=== PATIENT | male | born 1995 | race Caucasian/White ===

== ENCOUNTER 2020-10-06 08:13 | Outpatient (REF) | payer OTHER, SELFPAY ==
[2020-10-06 08:57] LABS: MANUAL DIFF FLAG NO
[2020-10-06 09:05] LABS: Basophils Percent Auto 0.4 % (0-2); Eosinophils Absolute Auto 0.1 X10*3/uL (0.0-0.4); Hematocrit 46.4 % (42-52); Hemoglobin 15.9 g/dl (14.0-18.0); Imm Gran Abs Auto 0.03 X10*3/uL (0.00-0.03); Imm Gran Pct Auto 0.4 % (0.0-0.4); Lymphocytes Absolute Auto 2.2 X10*3/uL (1.2-4.9); Lymphocytes Percent Auto 32.1 % (20-40); Mean Corpuscular HGB Conc 34.3 g/dl (31.0-36.0); Mean Corpuscular Volume 81.8 fL (80-98); Mean Platelet Volume 9.2 fL (9.4-12.4); Monocytes Absolute Auto 0.5 X10*3/uL (0.1-1.2); Monocytes Percent Auto 6.6 % (2-11); Neutrophils Absolute Auto 4.1 X10*3/uL (2.0-8.3); Neutrophils Percent Auto 58.5 % (45-73); Platelet Count 355 X10*3/uL (160-400); Red Blood Count 5.67 X10*6/uL (4.60-5.80); Red Cell Distribution Width 12.9 % (11.0-16.0)
[2020-10-06 09:32] LABS: Alanine Aminotransferase 20 U/L (0-40); Albumin Level 4.3 g/dL (3.5-5.0); Alkaline Phosphatase 50 U/L (39-117); Anion Gap 10 (12-20); Aspartate Amino Transferase 15 U/L (5-37); Bilirubin Total 1.1 mg/dL (0.0-1.0); Blood Urea Nitrogen 17 mg/dL (9-16); Carbon Dioxide 29 mmol/L (22-29); Chloride 103 mmol/L (96-108); Cholesterol 133 mg/dL; Estimated Glomerular Filt Rate > 60; Glucose Fasting 100 mg/dL (60-99); HDL Cholesterol 42 mg/dL; LDL Cholesterol Calculated 74 mg/dl; Potassium 4.3 mmol/l (3.3-5.1); Sodium 138 mmol/L (135-145); Total Protein 7.3 g/dL (6.5-8.0); Triglycerides 87 mg/dL
[2020-10-06 09:55] LABS: Thyroid Stimulating Hormone 0.68 uIU/mL (0.32-4.0)
== END 2020-10-06 08:14 | disposition home or self-care (01) ==
LOC: HO.LAB 08:13
PROVIDERS: PCP Internal Medicine; Visit Provider Internal Medicine
DX: E03.9 Hypothyroidism, unspecified (principal); Z00.00 Encounter for general adult medical examination without abnormal findings; E11.9 Type 2 diabetes mellitus without complications
CPT/HCPCS: 36415; 80053; 80061; 84443; 85025

== ENCOUNTER 2020-11-29 15:22 | Outpatient (REF) | payer OTHER, SELFPAY | END 2020-11-29 15:23 | disposition home or self-care (01) | LOC: HO.LAB 15:22 | PROVIDERS: Visit Provider Internal Medicine | DX: Z20.822 Contact with and (suspected) exposure to COVID-19 (principal) | CPT/HCPCS: 36415; C9803; U0003 ==

== ENCOUNTER 2021-01-09 12:12 | Outpatient (REF) | payer OTHER, SELFPAY | END 2021-01-09 12:13 | disposition home or self-care (01) | LOC: HO.LAB 12:12 | PROVIDERS: Visit Provider Internal Medicine | DX: Z20.822 Contact with and (suspected) exposure to COVID-19 (principal) | CPT/HCPCS: 36415; C9803; U0003; U0005 ==

== ENCOUNTER 2021-02-21 10:38 | Emergency (ER) | payer OTHER, SELFPAY ==
--- NOTE | ~2021-02-21 | CT_ITS ---
EXAMINATION: CT angio head neck CLINICAL INFORMATION: Status post chiropractic manipulation. Evaluate for dissection. COMPARISON: CT scan of the head 10/08/2010. TECHNIQUE: Automobile Racer images were obtained. A CT angiogram of the head and neck was performed in the arterial phase after the intravenous administration of 70 mL Omnipaque 350. Pre and delayed postcontrast images of the head were also obtained. MIP reconstructions were generated in multiple orientations at the acquisition workstation. Multiple three-dimensional surface rendered images and maximum intensity projection images were generated on a dedicated 3-D lab workstation. Arterial stenoses are measured in accordance with NASCET criteria or similar method if applicable. This CT examination was performed using dose optimization techniques as appropriate, including one or more of the following: Automated exposure control, iterative reconstruction, and adjustment of technique factors (mA and/or kVp) according to patient size (this includes techniques or standardized protocols for targeted exams where dose is matched to indication/reason for exam). Total exam dose-length product 2516 mGy-cm FINDINGS: Head: Postcontrast images reveal no abnormal mass or enhancement within the intracranial compartment. There is no acute hemorrhage or abnormal extra-axial collection. No intracranial mass effect or midline shift. Lateral and third ventricles are normal. No hydrocephalus. Hernandez-white matter differentiation is preserved and there is no evidence of acute territorial infarct. The calvarium and skull base are intact. Mastoid air cells and middle ear cavities are well aerated. No active paranasal sinus disease. CT angiogram neck: The aortic arch apex is normal. Origins of the major aortic branches are widely patent. Common carotid arteries and carotid bifurcations are normal. No stenosis of the extracranial internal carotid arteries. The cervical segments of the vertebral arteries as well as their origins are widely patent. No evidence of acute vascular dissection. CT angiogram head: Intracranial internal carotid arteries are normal. The intradural vertebral artery segments and basilar artery are normal. Anterior, middle, and posterior cerebral complexes are normal. No high-grade stenosis or proximal occlusion is visualized within the intracranial vessels. The timing of contrast injection provides adequate opacification of the dural venous sinuses which are patent. Other: Soft tissues of the neck including the thyroid gland are normal. Visualized lung apices are clear. There is no acute osseous finding. CT/CT angio head neck IMPRESSION: Normal CT angiogram of the head and neck.
[2021-02-21 11:03] VITALS: BP 126/79; PULSE 76; RESP 14; TEMP 36.2; O2SAT 97; BMI 36.4
--- NOTE | 2021-02-21 11:41 | ED_ITS ---
HPI - Neck Pain/Injury General Chief Complaint: Neck Pain/Injury Stated Complaint: neck pain Time Seen by Provider: 02/21/21 11:12 Source: patient Mode of arrival: ambulatory Limitations: no limitations History of Present Illness HPI Narrative: 25 y/o male presenting with acute on chronic neck pain L>R for the last 1 week. He initially had an injury to his neck in November after a fall and has been having issues since. He saw a chiropractor recently, and saw him 3 times last week. Since then he has been having more pain with movement. It hurts to try to move his head laterally down toward his shoulder. He has mild discomfort with rotation side to side. It hurts in the middle of the night and sometimes wakes him up. He denies hearing or feeling any popping or snapping sensations during his chiropractor visits. He denies headache. MD complaint: neck pain Onset (ago): month(s) Place: home Radiation: right lateral and left lateral Severity: moderate Severity scale (1-10): 6 Quality: aching and spasming Duration: constant and progressively worsening Relieving factors: immobilization and remaining still Exacerbating factors: movement of neck Context: recent chiropractic manipulation Associated symptoms: none Treatments prior to arrival: none Related Data Previous Rx's Medication Instructions Recorded cyclobenzaprine 10 mg PO TID PRN #10 tab 02/21/21 ibuprofen 600 mg PO Q8H PRN #20 tab 02/21/21 lidocaine [Lidoderm] 1 patch TOPICAL DAILY #15 ea 02/21/21 Allergies Allergy/AdvReac Type Severity Reaction Status Date / Time No Known Allergies Allergy Verified 10/19/20 11:34 Review of Systems Review of Systems: Constitutional: No Fever, No Chills Cardiovascular: No Chest Pain, No SOB Respiratory: No Cough, No Sputum Gastrointestinal: No Nausea, No Vomiting, No Diarrhea, No abdominal Pain Musculoskeletal: + joint pain, + Myalgias Skin: No Skin Lesions, No rash Neuro: No Weakness, No Numbness, No Dizziness, No Headache Heme/Lymph: No Bruising, No Lymphadenopathy PMFSH Past Medical History Attestation statement: The following information was validated with the patient. Medical History (Updated 02/21/21 @ 15:45 by IMRNA Ronquillo) Asthma Surgical History History of adenoidectomy Family History Family History Father No problems noted. Mother No problems noted. Social History Social History Alcohol intake: current Alcohol intake frequency: a few times a month Alcohol type: hard liquor Smoking Status: Never smoker Tobacco Type: Cigarette Smoked in Last 30 Days: No Use of substances other than those prescribed or required for medical reasons: No Advance Directives: Yes Advance Directives Information Provided: No Advance Directives on File: No Physical Exam Vital Signs: Vital Signs: Last Vital Signs Temp 97.4 F 02/21/21 14:01 Pulse 66 02/21/21 14:01 Resp 14 02/21/21 14:01 BP 130/77 02/21/21 14:01 Pulse Ox 98 02/21/21 14:01 Body Mass Index 36.4 Appearance: Alert. Oriented X3. No acute distress. Eyes: Pupils equal, round and reactive to light. ENT: Pharynx normal. Neck: Normal inspection. Neck supple. No cervical spinal tenderness. Right SCM with tenderness and spasm. CVS: Normal heart rate and rhythm. Pulses normal. Respiratory: No respiratory distress. Breath sounds normal. Abdomen: Soft and nontender. +BS x4 Skin: Skin warm and dry. Normal skin color. Normal skin turgor. No rashes. Extremities: No lower extremity edema. Neuro: Oriented X 3. No motor deficit. No sensory deficit. Course Course Course Narrative: 25 y/o with acute on chronic neck pain, most recently after chiropractor manipulation. Concern for possible carotid dissection given history, although his examination is consistent muscular strain. Will get CTA neck for further evaluation. Reevaluation(s) Reevaluation #1: CT neck is negative for dissection. Will treat for muscle strain in the neck. Patient agreeable with plan. Stable for d/c. MDM - Neck Pain/Injury Lab Data Result diagrams: 02/21/21 12:03 02/21/21 12:03 Labs: Lab Results 02/21/21 02/21/21 Range/Units 12:03 12:03 WBC 6.2 (4.8-10.8) X10*3/uL RBC 5.71 (4.60-5.80) X10*6/uL Hgb 15.8 (14.0-18.0) g/dl Hct 48.0 (42-52) % MCV 84.1 (80-98) fL MCH 27.7 (27.0-33.0) pg MCHC 32.9 (31.0-36.0) g/dl RDW 12.9 (11.0-16.0) % Plt Count 336 (160-400) X10*3/uL MPV 8.9 L (9.4-12.4) fL Immature Gran % (Auto) 0.2 (0.0-0.4) % Neut % (Auto) 65.6 (45-73) % Lymph % (Auto) 26.3 (20-40) % Lamoure % (Auto) 6.3 (2-11) % Eos % (Auto) 1.1 (0-4) % Baso % (Auto) 0.5 (0-2) % Lymph # (Auto) 1.6 (1.2-4.9) X10*3/uL [place]oure # (Auto) 0.4 (0.1-1.2) X10*3/uL Eos # (Auto) 0.1 (0.0-0.4) X10*3/uL Baso # (Auto) 0.0 (0.0-0.2) X10*3/uL Abs Immat Gran (auto) 0.01 (0.00-0.03) X10*3/uL Absolute Neuts (auto) 4.0 (2.0-8.3) X10*3/uL Absolute Nucleated RBC 0.000 (0.0-0.012) X10*3/uL Nucleated RBC % (auto) 0.0 (0.0-0.2) /100WBC Sodium 141 (135-145) mmol/L Potassium 4.4 (3.3-5.1) mmol/L Chloride 105 (96-108) mmol/L Carbon Dioxide 28 (22-29) mmol/L Anion Gap 12 (12-20) Creatinine 0.84 (0.5-1.4) mg/dL Estim Creat Clear Calc 148.1 Estimated GFR > 60 Random Glucose 101 (60-115) mg/dL Discharge Plan Discharge Clinical Impression: Strain of neck muscle Qualifiers: Encounter type: initial encounter Qualified Code(s): S16.1XXA - Strain of muscle, fascia and tendon at neck level, initial encounter Patient Disposition: Home, Self-Care Instructions: Cervical Strain (ED), Neck Pain (ED) Additional Instructions: Your CT scan today was normal. The pain in your neck is likely muscular in nature. Take the prescribed medications as needed for pain. Follow up with your doctor this week. If you have worsening pain, or develop any numbness, tingling or weakness come back to the ER for further evaluation. Prescriptions: New cyclobenzaprine 10 mg tablet 10 mg PO TID PRN (Reason: muscle spasm) Qty: 10 RF: 0 ibuprofen 600 mg tablet 600 mg PO Q8H PRN (Reason: pain) Qty: 20 RF: 0 lidocaine [Lidoderm] 5 % adhesive patch,medicated 1 patch topical DAILY Qty: 15 RF: 0
[2021-02-21 12:07] LABS: MANUAL DIFF FLAG NO
[2021-02-21 12:08] LABS: Basophils Percent Auto 0.5 % (0-2); Eosinophils Absolute Auto 0.1 X10*3/uL (0.0-0.4); Eosinophils Percent Auto 1.1 % (0-4); Hemoglobin 15.8 g/dl (14.0-18.0); Imm Gran Abs Auto 0.01 X10*3/uL (0.00-0.03); Imm Gran Pct Auto 0.2 % (0.0-0.4); Lymphocytes Absolute Auto 1.6 X10*3/uL (1.2-4.9); Lymphocytes Percent Auto 26.3 % (20-40); Mean Corpuscular HGB Conc 32.9 g/dl (31.0-36.0); Mean Corpuscular Hemoglobin 27.7 pg (27.0-33.0); Mean Corpuscular Volume 84.1 fL (80-98); Mean Platelet Volume 8.9 fL (9.4-12.4); Monocytes Absolute Auto 0.4 X10*3/uL (0.1-1.2); Monocytes Percent Auto 6.3 % (2-11); Neutrophils Percent Auto 65.6 % (45-73); Platelet Count 336 X10*3/uL (160-400); Red Blood Count 5.71 X10*6/uL (4.60-5.80); Red Cell Distribution Width 12.9 % (11.0-16.0); White Blood Count 6.2 X10*3/uL (4.8-10.8)
[2021-02-21 12:36] LABS: Anion Gap 12 (12-20); Carbon Dioxide 28 mmol/L (22-29); Chloride 105 mmol/L (96-108); Creatinine Clr Calc Pharmacy 148.1; Estimated Glomerular Filt Rate > 60; Glucose Random 101 mg/dL (60-115); Potassium 4.4 mmol/L (3.3-5.1); Sodium 141 mmol/L (135-145)
[2021-02-21] MEDS: iohexoL 350 MG/ML 100 ML INFUS..BTL IV (13:00)
[2021-02-21 14:01] VITALS: BP 130/77; PULSE 66; RESP 14; TEMP 36.3; O2SAT 98
--- NOTE | 2021-02-21 15:02 | PC.NURSE ---
call placed to public safety director to request update on cta results
--- NOTE | 2021-02-21 15:29 | PC.NURSE ---
additional call to cat scan dept by surekha yao to request results
[2021-02-21 16:48] LABS: Blood Urea Nitrogen 19 mg/dL (9-16); Calcium 9.4 mg/dL (8.4-10.2)
== END 2021-02-21 16:01 | disposition home or self-care (01) ==
PROVIDERS: Physician Assistant; Emergency Provider Emergency Medicine Emergency Medical Services; PCP Internal Medicine
DX: S16.1XXA Strain of muscle, fascia and tendon at neck level, initial encounter (principal); M54.2 Cervicalgia; G44.309 Post-traumatic headache, unspecified, not intractable; W01.0XXA Fall on same level from slipping, tripping and stumbling without subsequent striking against object, initial encounter; Y93.9 Activity, unspecified; Y92.9 Unspecified place or not applicable; Y99.9 Unspecified external cause status; F17.210 Nicotine dependence, cigarettes, uncomplicated; Z79.899 Other long term (current) drug therapy; Z71.6 Tobacco abuse counseling
CPT/HCPCS: 36415; 70496; 70498; 80048; 85025; 99284; Q9967

== ENCOUNTER → 2021-03-29 08:19 | Outpatient (BNVA) | payer OTHER, SELFPAY | PROVIDERS: PCP Internal Medicine; Visit Provider Internal Medicine | DX: S40.012A Contusion of left shoulder, initial encounter (principal); W18.30XA Fall on same level, unspecified, initial encounter | CPT/HCPCS: 72050; 73030; 99203 ==

== ENCOUNTER → 2021-04-03 08:03 | Outpatient (BNVA) | payer OTHER, SELFPAY | PROVIDERS: PCP Internal Medicine; Visit Provider Internal Medicine | DX: S40.012A Contusion of left shoulder, initial encounter (principal); W18.30XA Fall on same level, unspecified, initial encounter | CPT/HCPCS: 99213 ==

== ENCOUNTER → 2024-05-07 11:20 | Outpatient (BNVA) | payer SELFPAY | PROVIDERS: PCP Internal Medicine; Visit Provider Registered Nurse | DX: Z02.79 Encounter for issue of other medical certificate (principal) ==

== ENCOUNTER 2025-08-09 14:51 | Outpatient (AMB) | payer OTHER, SELFPAY ==
--- NOTE | 2025-08-09 15:13 | A.OFFPC_ITS ---
Vital Signs 3 08/09/25 15:14 Height 5 ft 6 in Weight 248 lb 6 oz BMI 40.1 BP 120/80 Blood Pressure Location Lt brachial Position Sitting Respiration 18 Pulse 85 Pulse Source Pulse Oximeter Temp Source Temporal Artery Scan Pulse Oximetry (%) 97 Oxygen Delivery Method Room Air Intake Visit Reasons: establish care Senior Accounts Payable Specialist Required: No Accompanied by: Self / Same As Patient Allergies No Known Allergies Allergy (Verified 08/09/25 15:27) Medication List - Last Reconciled 08/09/25 by Ja Dangelo PA-C No Known Home Meds Tobacco use date assessed: 08/09/25 Dental Screening Dental Screen Date: 08/09/25 Did you have a dental visit in the last 12 months?: No Did you have a dental problem in the last 6 months where you did not have access to dental care?: No Was dental information given to patient?: No HPI establish care 2 HPI0 Details The patient is a 29-year-old male presenting with multiple concerns including erectile dysfunction, shoulder pain, frequent urination with bladder pain, and lumps on the body. He has not been seen by PCP in over 4 years The erectile dysfunction has been ongoing for approximately eight months, with the patient reporting an inability to achieve an erection despite having the urge. He previously sought medical attention two years ago but did not receive follow-up results. The shoulder pain began a few months ago following an unreported work injury. The patient experiences pain and pressure when lifting or sleeping on the affected side, with a noted decrease in strength and range of motion. The patient reports frequent urination with associated bladder pain, occurring approximately every 30 minutes throughout the day. He denies increased thirst but notes a history of proteinuria identified during a previous medical examination. The patient has noticed lumps on his body, which have become more prominent over the past week. These lumps are not painful but cause discomfort, and the patient is concerned about their nature. The patient has a family history of heart defects, with his father having a condition described as a hole in the heart. He is aware that this condition may be hereditary and is considering getting checked, as his siblings have already been tested. The patient has a BMI that categorizes him as obese, and he acknowledges the need to address this issue. [facility] Medical History Asthma (03/27/21) Surgical History History of adenoidectomy Family History (Updated 08/09/25 @ 15:51 by Ja Dangelo PA-C) Father Congenital heart defect Mother No problems noted. Social History (Updated 08/09/25 @ 15:30 by Ja Dangelo PA-C) Household Members: None Housing: Apartment Alcohol intake: current Alcohol intake frequency: a few times a month Alcohol type: hard liquor Tobacco use type: Smokeless Tobacco e-Cigarette/Vaping Use: Currently Using Current occupational status: employed Current occupation: delivery driver Cognitive needs: No Hearing needs: No Vision needs: No Questionnaire PHQ-9 Over the last 2 weeks, how often have you been bothered by any of the following problems? 1. Little interest or pleasure in doing things: several days 2. Feeling down, depressed, or hopeless: several days 3. Trouble falling or staying asleep, or sleeping too much: several days 4. Feeling tired or having little energy: several days 5. Poor appetite or overeating: several days 6. Feeling bad about yourself - or that you are a failure or have let yourself or your family down: not at all 7. Trouble concentrating on things, such as reading the newspaper or watching television: nearly every day 8. Moving or speaking so slowly that other people could have noticed. Or the opposite - being so fidgety or restless that you have been moving around a lot more than usual: not at all 9. Thoughts that you would be better off or of hurting yourself in some way: not at all Total score: 8 Depression Screening Interpretation: Positive Depression Screening Follow-up: Existing condition Depression Screening Done: Yes 49792 - PHQ-9 Billing: Yes Source: Developed by Drs. Lukasz Canales, Lauren Varghese, Patric Pride and colleagues, with an educational mally from [employer]. Thrive Questionnaire Date Thrive assessed: 08/09/25 I am a: Patient What is your living situation today?: I have a steady place to live Within the past 12 months, did the food you bought not last and you didn't have the money to get more?: Never true Within the past 12 months, did you worry whether your food would run out before you got money to buy more?: Never true Do you have trouble paying for medicines?: No Do you have trouble getting transportation to medical appointments?: No Do you have trouble paying your heating and electricity bill?: No Do you have trouble taking care of your child, family member or friend?: No Do you have trouble with day-to-day activities such as bathing, preparing meals, shopping, managing finances, etc.?: No Are you currently unemployed and looking for a job?: No Are you interested in more education?: No Please select the resources that you would like help with: None Currently or been in a relationship where the following occur: No concerns reported THRIVE Score: 0 AUDIT C Alcohol Use Questionnaire (AUDIT-C) 1. How often do you have a drink containing alcohol?: Monthly or less 2. How many drinks containing alcohol do you have on a typical day when you are drinking?: 3 or 4 3. How often do you have six or more drinks on one occasion?: Never Total Score: 2 LILIBETH-7 AMB Questionnaire LILIBETH-7 Date LILIBETH - 7 assessed: 08/24/25 Feeling nervous, anxious, or on edge: 0 = Not at all Not being able to stop or control worryin = Not at all Worrying too much about different things: 1 = Several days Trouble relaxin = More than half the days Being so restless that it is hard to sit still: 1 = Several days Becoming easily annoyed or irritable: 2 = More than half the days Feeling afraid as if something awful might happen: 0 = Not at all Total LILIBETH-7 score (0-4 normal; 5-9 mild; 10-14 moderate; 15-21 severe): 6 Source: Developed by Drs. Lukasz Canales, Lauren Varghese, Patric Pride and colleagues, with an educational mally from [employer]. LILIBETH-7 Assessment Billing LILIBETH-7 Assessment Tool: LILIBETH-7 Assessment 52228 Review of Systems Const Denies headache(s) Eyes Denies loss of vision ENT Denies vertigo, Denies dizziness, Denies headache(s) and Denies sore throat Card Denies chest pain, Denies leg edema and Denies lightheadedness Resp Denies cough, Denies hemoptysis and Denies wheezing GI Denies abdominal pain, Denies melena, Denies constipation, Denies diarrhea and Denies vomiting Denies dysuria, Denies urinary frequency and Denies urinary urgency Musc Denies arthralgias, Denies joint swelling, Denies numbness and Denies tingling Neuro Denies Abnormal speech present, Denies behavioral changes, Denies vertigo, Denies dizziness, Denies headache(s), Denies loss of vision, Denies memory loss, Denies numbness and Denies tingling Psych Denies anxiety, Denies behavioral changes, Denies depression, Denies memory loss and Denies panic attacks Hasmukh/Lymph Denies easy bleeding and Denies easy bruising Aller/Immun Denies wheezing Physical exam (Primary Care) Vital Signs: Last Vital Signs Pulse 85 08/09/25 15:14 Resp 18 08/09/25 15:14 BP 120/80 08/09/25 15:14 Pulse Ox 97 08/09/25 15:14 Oxygen Delivery Method Room Air 08/09/25 15:14 BMI result Body Mass Index 40.1 Tobacco/Smoking Status: Tobacco use Status Tobacco use date assessed 08/09/25 08/09/25 15:23 Patient Tobacco Use Status 08/09/25 15:30 Tobacco use type Smokeless Tobacco 08/09/25 15:30 e-Cigarette/Vaping Use Currently Using 08/09/25 15:30 PHQ-9: PHQ-9 Score PHQ-9: Total score 8 08/09/25 15:35 Depression Screening Interpretation: Positive Depression Screening Follow-up: Existing condition Thrive Assessment: Date of Thrive Assessment Date Thrive assessed 08/09/25 08/09/25 15:23 Currently or been in a relationship where the following occur: No concerns reported Const General: healthy appearing, no acute distress, alert and awake Nutritional Appearance: well nourished Orientation/consciousness: oriented to person, oriented to place and oriented to time HENMT Ears: TM's normal bilaterally General nose exam: Normal nasal mucous membranes and turbinates present Eyes Conjunctivae: conjunctivae normal Sclerae: sclerae normal Pupils: Equal, round and reactive pupils present Neck Neck: Yes no lymphadenopathy and Yes no JVD Thyroid: Thyroid normal Carotids: no bruits Neck images: 2 1. PALPABLE SOFT LUMP NOTED IN THE REGION OUTLINED Resp Effort & Inspection: normal respiratory effort and not tachypneic Auscultation: no crackles, no rales, no rhonchi and no wheezes Cardio Rate: regular rate Rhythm: regular rhythm Heart sounds: no murmurs and normal S1 and S2 GI Palpation (GI): Soft to palpation, nontender, no hepatomegaly and no splenomegaly Auscultation: normal bowel sounds Skin General skin exam: no rashes or lesions noted and dry skin Neuro General: oriented to person, oriented to place and oriented to time Cranial nerves: Yes Equal, round and reactive pupils present Speech: No Abnormal speech present Gait exam (Neuro): Normal gait present Motor exam (neuro): no tremor noted Extrem Other: RIGHT SHOULDER: SOME LIMITED RANGE OF MOTION OF THE RIGHT SHOULDER, NEGATIVE EMPTY CAN, NEGATIVE HERNÁNDEZ TEST. Right upper extremity: full ROM Left upper extremity: full ROM Right lower extremity: full ROM; no edema Left lower extremity: full ROM; no edema Psych Mental Status: mental status grossly normal Speech and movement: Normal speech and movement present Affect: normal affect Attitude: cooperative Thought process: Normal thought process present Coding Level of Care Code New Pt Level 4 (45570) Diagnoses Tendinopathy of right shoulder M67.911 Lump on neck R22.1 Polyuria R35.89 Erectile disorder N52.9 Screening for diabetes mellitus (DM) Z13.1 Family history of congenital heart defect Z82.79 Additional Codes PHQ-9 - 38876 - PHQ-9 Billing: Yes ([id number]) LILIBETH-7 Assessment Billing - LILIBETH-7 Assessment Tool: LILIBETH-7 Assessment 00967 ([id number]) Assessment & Plan Assessment & Plan (1) Tendinopathy of right shoulder: Code(s): M67.911 - Unspecified disorder of synovium and tendon, right shoulder Category: Medical Plan: The shoulder pain will be initially managed with physical therapy and an x-ray to assess for any structural issues, with an MRI considered if symptoms persist. (2) Lump on neck: Code(s): R22.1 - Localized swelling, mass and lump, neck Category: Medical Plan: An ultrasound of the lumps is planned to determine if they are lipomas or lymphadenopathy. (3) Polyuria: Code(s): R35.89 - Other polyuria Category: Medical Plan: An ultrasound of the bladder is planned to investigate the cause of frequent urination and bladder pain, with consideration of potential cystitis or other bladder issues (4) Erectile disorder: Code(s): N52.9 - Male erectile dysfunction, unspecified Category: Medical Plan: Patient fairly young for erectile dysfunction. Does have a consistent partner required some time. Will trial sildenafil before sexual activity. Will refer to Urology for evaluation. (5) Screening for diabetes mellitus (DM): Code(s): Z13.1 - Encounter for screening for diabetes mellitus Category: Medical Plan: As per HPI (6) Family history of congenital heart defect: Code(s): Z82.79 - Family history of other congenital malformations, deformations and chromosomal abnormalities Category: Medical Plan: Patient has a family (father) history of a genetic/ congenital heart defect. Advise about evaluation. No overt signs of Congestive heart failure or murmurs on physical exam Orders: Orders 2 US bladder 08/09/25 R35.89 - Other polyuria US soft tiss head and/or neck 08/09/25 R22.1 - Localized swelling, mass and lump, neck Comprehensive [place]. Panel Fast 08/09/25 Z13.1 - Encounter for screening for diabetes mellitus CA echo transthoracic complete Today Z82.79 - Family history of other congenital malformations, deformations and chromosomal abnormalities UA CC w/rflx Micro + Cult 08/09/25 R30.0 - Dysuria, R35.89 - Other polyuria XR shoulder RT min 2V 08/09/25 M67.911 - Unspecified disorder of synovium and tendon, right shoulder Complete Blood Count no Diff 08/09/25 Z13.1 - Encounter for screening for diabetes mellitus Referrals 2 Urology Referral N52.9 - Male erectile dysfunction, unspecified Medications: New 2 sildenafil (Viagra) 100 mg PO DAILY 7 tabs 0RF 7 days N52.9 - Male erectile dysfunction, unspecified
[2025-08-09 15:14] VITALS: BP 120/80; PULSE 85; RESP 18; O2SAT 97; BMI 40.1
--- OUTSIDE RECORDS SUMMARY | 2025-08-09 17:57 | XMS_ITS | Encounter Summary ---
Author Organization [facility] Address [address] [place] [id number] Phone Care Team Providers Care Safety Engineer Pressure Vessels Name Role Phone Arturo Cheung MD Primary Care Provider Unavailabl e Encounter Details Date Type Department Care Team (Late st Contact Info) Description 06/03/2011 Documentation [facility] [address] [place], [place] [id number] Family Medicine, Physician [address] [place] [address] Social History Tobacco Use Types Packs/Day Years Used Date Smoking Tobacco: Never Assessed Sex and Gender Information Value Date Recorded Sex Assigned at Not on file Legal Sex Male 4:41 PM EDT Gender Identity Not on file Sexual Orientation Not on file documented as of this encounter Plan of Treatment Not on file documented as of this encounter Visit Diagnoses Not on filedocumented in this encounter Care Teams Safety Engineer Pressure Vessels Relationship Specialty Start Date End Date Arturo Cheung MD PCP - General 06/27/17 documented as of this encounter
--- OUTSIDE RECORDS SUMMARY | 2025-08-09 17:57 | XMS_ITS | Encounter Summary ---
Author Organization [facility] Address [address] [place] [phone] Phone Care Team Providers Care Forensic Medical Examiner Name Role Phone Arturo Cheung MD Primary Care Provider Unavailabl e Encounter Details Date Type Department Care Team (Late st Contact Info) Description 05/08/2012 Documentation [facility] [address] [place], [place] [phone] Family Medicine, Physician [address] [place] [address] Social History Tobacco Use Types Packs/Day Years [...] on filedocumented in this encounter Care Teams Forensic Medical Examiner Relationship Specialty Start Date End Date Arturo Cheung MD PCP - General 06/27/17 documented as of this encounter
--- OUTSIDE RECORDS SUMMARY | 2025-08-09 17:57 | XMS_ITS | Encounter Summary ---
Author Organization [facility] Address [address] [place] [address] Phone Care Team Providers Care Grounds Cleaner Name Role Phone Arturo Cheung MD Primary Care Provider Unavailabl e Encounter Details Date Type Department Care Team (Late st Contact Info) Description 2011 Documentation [facility] [address] [place], [place] [phone] Family Medicine, Physician [address] [place] [address] Social History Tobacco Use Types Packs/Day Years [...] on filedocumented in this encounter Care Teams Grounds Cleaner Relationship Specialty Start Date End Date Arturo Cheung MD PCP - General 06/27/17 documented as of this encounter
--- OUTSIDE RECORDS SUMMARY | 2025-08-09 17:57 | XMS_ITS | Encounter Summary ---
Author Organization [facility] Address [address] [place] [address] Phone Care Team Providers Care Client Associate Name Role Phone Arturo Cheung MD Primary Care Provider Unavailabl e Encounter Details Date Type Department Care Team (Late st Contact Info) Description 06/03/2011 Documentation [facility] [address] [place], [place] [phone] Family Medicine, Physician [address] [place] [address] Social History Tobacco Use Types Packs/Day Years [...] on filedocumented in this encounter Care Teams Client Associate Relationship Specialty Start Date End Date Arturo Cheung MD PCP - General 06/27/17 documented as of this encounter
--- OUTSIDE RECORDS SUMMARY | 2025-08-09 17:57 | XMS_ITS | Encounter Summary ---
Author Organization [facility] Address [address] [place] [phone] Phone Care Team Providers Care Driver Manager Name Role Phone Arturo Cheung MD Primary Care Provider Unavailabl e Encounter Details Date Type Department Care Team (Late st Contact Info) Description 03/11/2012 Documentation [facility] [address] [place], [place] [phone] Family Medicine, Physician [address] [place] [address] Social History Tobacco Use Types Packs/Day Years [...] on filedocumented in this encounter Care Teams Driver Manager Relationship Specialty Start Date End Date Arturo Cheung MD PCP - General 06/27/17 documented as of this encounter
--- OUTSIDE RECORDS SUMMARY | 2025-08-09 17:57 | XMS_ITS | Encounter Summary ---
Author Organization [facility] Address [address] [place] [address] Phone Care Team Providers Care Licensed Veterinary Technician Name Role Phone Arturo Cheung MD Primary Care Provider Unavailabl e Encounter Details Date Type Department Care Team (Late st Contact Info) Description 06/03/2011 Documentation [facility] [address] [place], [place] [phone] Family Medicine, Physician [address] [place] [address] Social History Tobacco Use Types Packs/Day Years [...] on filedocumented in this encounter Care Teams Licensed Veterinary Technician Relationship Specialty Start Date End Date Arturo Cheung MD PCP - General 06/27/17 documented as of this encounter
--- OUTSIDE RECORDS SUMMARY | 2025-08-09 17:57 | XMS_ITS | Encounter Summary ---
Author Organization [facility] Address [address] [place] [address] Phone Care Team Providers Care Automobile Body Worker Name Role Phone Arturo Cheung MD Primary Care Provider Unavailabl e Encounter Details Date Type Department Care Team (Late st Contact Info) Description 07/03/2017 Conversion Encounter [facility] - [address] [address] Social History Tobacco Use Types Packs/Day Years Used Date Smoking Tobacco: Never Comments:Never smoker Sex and Gender Information Value Date Recorded Sex Assigned at Not on file Legal Sex Male 4:41 PM EDT Gender Identity Not on file Sexual Orientation Not on file documented as of this encounter Plan of Treatment Not on file documented as of this encounter Visit Diagnoses Not on filedocumented in this encounter Care Teams Automobile Body Worker Relationship Specialty Start Date End Date Arturo Cheung MD PCP - General 06/27/17 documented as of this encounter
--- OUTSIDE RECORDS SUMMARY | 2025-08-09 17:57 | XMS_ITS | Clinical Summary ---
Author Organization [facility] Address [address] [place] [address] Phone Care Team Providers Care Technical Product Manager Name Role Phone Arturo Cheung MD Primary Care Provider Unavailabl e Immunizations Immunization Administration Dates Next Due DTP 03/24/1995, 4,04/17/1994,12/18 DTaP 5 10/07/1997 HPV, Quadrivalent 03/10/2012 Hep A, ped/adol 05/31/2011 Hep B, ped/adol 04/17/1994,1993,1993 Hib (PRP-T) 06/04/2001 Influenza Split 09/30/2011 Influenza, intranasal, trivalent 07/26/2010 MMR 10/07/1997,03/24/1995 Meningococcal Conj (Menactra) MCV4P 09/18/2007 OPV 10/07/1997, 4,04/17/1994,12/18 Td (adult) (MBL), 2 Lf tetan us toxoid, PF, adsorbed 03/10/2012 Tdap 10/31/2005 Family History Relation Name Status Comments Brother Alive Brother: Hypert ension / Diabetes, Alive and well Father Alive Father: Hyperli pidemia / High Blood Pressure Mother Alive Mother: Rheumat oid arthritis Other Family history of Obesity, Family history of Migraines, Family history of Diabetes mellitus, Family history of Asthma Social History Tobacco Use Types Packs/Day Years Used Date Smoking Tobacco: Never Comments:Never smoker Sex and Gender Information Value Date Recorded Sex Assigned at Not on file Legal Sex Male 4:41 PM EDT Gender Identity Not on file Sexual Orientation Not on file Last Filed Vital Signs Vital Sign Reading Time Taken Comments Blood Pressure 113/77 02/04/2014 12:00 AM EDT Pulse 64 08/28/2010 12:00 AM EDT Temperature 35.8 C (96.5 F) 02/04/2014 12:00 AM EDT Respiratory Rate - - Oxygen Saturation 100% 11/30/2010 12:00 AM EST Inhaled Oxygen Concentration - - Weight 102 kg (225 lb) 02/04/2014 12:00 AM EDT Height 169.9 cm (5' 6.9 ) 02/04/2014 12:00 AM ED T Body Mass Index 35.35 02/04/2014 12:00 AM EDT Plan of Treatment Health Maintenance Due Date Last Done Comments Hepatitis B Vaccines (3 of 3 - 3-dose series) 06/12/1994 04/17/1994, 1993, 1993 Varicella Vaccines (1 of 2 - 13+ 2-dose series) 08/23/2010 Hepatitis A Vaccines (2 of 2 - 2-dose series) 12/01/2011 05/31/2011 HPV Vaccines (2 - Male 3-dose series) 04/07/2012 03/10/2012 DTaP,Tdap,and Td Vaccines (8 - Td or Tdap) 03/10/2022 03/10/2012, 10/31/2005, 10/07/1997, Additional history exists Influenza Vaccines (#1) 2025 09/30/2011, 07/26 COVID-19 Vaccine ( season) 2025 IPV Vaccines Completed 10/07/1997, 07/1994, 04/17/1994, Additional history exists MMR Vaccines Completed 10/07/1997, 03/24/1995 HIB Vaccines Aged Out 06/04/2001 No longer eligi ble based on patient's age to complete this topic Meningococcal Vaccine Aged Out 09/18/2007 No iglesia constance eligible based on patient's age to complete this topic Men B Vaccine Aged Out No longer elig ible based on patient's age to complete this topic Pneumococcal Vaccine Aged Out No long er eligible based on patient's age to complete this topic Care Teams Technical Product Manager Relationship Specialty Start Date End Date Arturo Cheung MD PCP - General 06/27/17
== END 2025-08-09 15:59 | disposition home or self-care (01) ==
PROVIDERS: PCP Physician Assistant; Visit Provider Physician Assistant
DX: M67.911 Unspecified disorder of synovium and tendon, right shoulder (principal); R22.1 Localized swelling, mass and lump, neck; R35.89 Other polyuria; N52.9 Male erectile dysfunction, unspecified; Z13.1 Encounter for screening for diabetes mellitus; Z82.79 Family history of other congenital malformations, deformations and chromosomal abnormalities

== ENCOUNTER → 2025-08-09 14:51 | Outpatient (BNVA) | payer OTHER, SELFPAY | PROVIDERS: Visit Provider Physician Assistant | DX: R35.0 Frequency of micturition (principal); N52.9 Male erectile dysfunction, unspecified; M67.911 Unspecified disorder of synovium and tendon, right shoulder; R22.1 Localized swelling, mass and lump, neck; R35.89 Other polyuria; E66.9 Obesity, unspecified; R30.0 Dysuria; Z68.41 Body mass index [BMI] 40.0-44.9, adult; Z82.79 Family history of other congenital malformations, deformations and chromosomal abnormalities | CPT/HCPCS: 96127 ==

== ENCOUNTER 2025-08-15 12:00 | Outpatient (REF) | payer OTHER, SELFPAY ==
--- NOTE | ~2025-08-15 | XR_ITS ---
EXAMINATION: XR SHOULDER, RIGHT CLINICAL INFORMATION: M67.911 - Unspecified disorder of synovium and tendon, right shoulder COMPARISON: None available. TECHNIQUE: AP external rotation, Grashey, scapular Y, and axillary views of the right shoulder. FINDINGS: Normal bone mineralization. No fracture, dislocation, or suspicious bone lesion. Normal alignment. The glenohumeral joint is normal. The AC joint demonstrates minimal spurring. There is a type II acromion. No undersurface spurring. The subacromial space is preserved. Remainder of the soft tissue and bony structures appear normal. XR/XR shoulder RT min 2V IMPRESSION: 1. No acute findings of the right shoulder. 2. Minimal spurring of the AC joint. Electronically signed by: Jose Ramsay MD 08/15/2025 01:20 PM EDT
[2025-08-15 13:35] LABS: Hematocrit 45.0 % (42.0-52.0); Hemoglobin 15.3 g/dl (14.0-18.0); Mean Corpuscular HGB Conc 34.0 g/dl (31.0-36.0); Mean Corpuscular Hemoglobin 27.4 pg (27.0-33.0); Mean Corpuscular Volume 80.6 fL (80.0-98.0); NRBC Abs Auto 0.000 X10*3/uL (0.0-0.012); NRBC Pct Auto 0.0 /100WBC (0.0-0.2); Platelet Count 362 X10*3/uL (160-400); Red Blood Count 5.58 X10*6/uL (4.60-5.80); White Blood Count 7.6 X10*3/uL (4.8-10.8)
[2025-08-15 14:01] LABS: Appearance Urine Clear; Glucose Urine UA Negative (Negative); PH 5.5 (5.0-9.0); Specific Gravity - Urine 1.020 (1.005-1.025)
[2025-08-15 14:29] LABS: Alanine Aminotransferase 34 U/L (0-40); Albumin Level 4.5 g/dL (3.5-5.0); Alkaline Phosphatase 67 U/L (39-117); Anion Gap 12 (12-20); Aspartate Amino Transferase 25 U/L (5-37); Blood Urea Nitrogen 14 mg/dL (9-16); Calcium 9.2 mg/dL (8.4-10.2); Carbon Dioxide 26 mmol/L (22-29); Chloride 107 mmol/L (96-108); Estimated Glomerular Filt Rate > 60; Potassium 3.8 mmol/L (3.3-5.1); Sodium 141 mmol/L (135-145); Total Protein 7.6 g/dL (6.5-8.0)
== END 2025-08-15 12:01 | disposition home or self-care (01) ==
LOC: HO.XRAY 12:00
PROVIDERS: PCP Physician Assistant; Visit Provider Physician Assistant
DX: Z13.1 Encounter for screening for diabetes mellitus (principal); M67.911 Unspecified disorder of synovium and tendon, right shoulder; R30.0 Dysuria; R35.89 Other polyuria
CPT/HCPCS: 36415; 73030; 80053; 81003; 85027

== ENCOUNTER → 2025-08-15 12:33 | Outpatient (BNV) | payer OTHER, SELFPAY | PROVIDERS: PCP Physician Assistant; Visit Provider Radiology Diagnostic Radiology | DX: M19.011 Primary osteoarthritis, right shoulder (principal) | CPT/HCPCS: 73030 ==

== ENCOUNTER 2025-08-18 15:09 | Outpatient (AMB) | payer OTHER, SELFPAY ==
--- NOTE | 2025-08-18 15:15 | A.OFFPC_ITS ---
Vital Signs 3 08/18/25 15:17 Height 5 ft 6 in Weight 248 lb 8 oz BMI 40.1 BP 140/84 H Blood Pressure Location Lt brachial Position Sitting Pulse 95 Pulse Source Pulse Oximeter Temp 97.3 F Temp Source Temporal Artery Scan Pulse Oximetry (%) 98 Oxygen Delivery Method Room Air Intake Visit Reasons: bump/lump on neck, painful Intake Note: Patient is here to follow up on Bump/lump on right side of neck with pain. Claims Specialist Required: No Utility Specialist: Not Required per policy Accompanied by: Self / Same As Patient Allergies No Known Allergies Allergy (Verified 08/18/25 15:22) Medication List - Last Reconciled 08/18/25 by Ja Dangelo PA-C celecoxib (Celebrex) 200 mg PO DAILY PRN 30 days sildenafil (Viagra) 100 mg PO DAILY 7 days Tobacco use date assessed: 08/18/25 Dental Screening Dental Screen Date: 08/09/25 HPI bump/lump on neck, painful 2 HPI0 Details Patient is a 29-year-old male here today for problem visit. The cervical mass has been present for some time but has recently increased in size and is now causing pressure and pain radiating to the neck, accompanied by headaches. Right shoulder pain: The patient also has a history of shoulder arthritis, with minimal spurring at the acromioclavicular joint, causing pain and affecting his ability to perform work-related tasks. Physical therapy has been recommended, and the patient is considering options for managing work and therapy commitments. .. 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 He has been advised to monitor his blood pressure and consider lifestyle modifications to manage it. Class 3 obesity: Job and has found it very difficult to lose weight, has only been able to lose weight with a very limited fasting diet. He is interested in trying medication to help [facility] Medical History Asthma (03/27/21) Surgical History History of adenoidectomy Family History Father Congenital heart defect Mother No problems noted. Social History Household Members: None Housing: Apartment Alcohol intake: current Alcohol intake frequency: a few times a month Alcohol type: hard liquor Patient Tobacco Use Status: Never used Tobacco Tobacco use type: Smokeless Tobacco e-Cigarette/Vaping Use: Currently Using Second Hand Smoke Exposure: No service: No Current occupational status: employed Current occupation: truck driver heavy Cognitive needs: No Hearing needs: No Vision needs: No Questionnaire Thrive Questionnaire Date Thrive assessed: 08/02/25 I am a: Patient What is your living situation today?: I have a steady place to live Within the past 12 months, did the food you bought not last and you didn't have the money to get more?: Never true Within the past 12 months, did you worry whether your food would run out before you got money to buy more?: Never true Do you have trouble paying for medicines?: No Do you have trouble getting transportation to medical appointments?: No Do you have trouble paying your heating and electricity bill?: No Do you have trouble taking care of your child, family member or friend?: No Do you have trouble with day-to-day activities such as bathing, preparing meals, shopping, managing finances, etc.?: No Are you currently unemployed and looking for a job?: No Are you interested in more education?: No Please select the resources that you would like help with: None Currently or been in a relationship where the following occur: No concerns reported THRIVE Score: 0 LILIBETH-7 AMB Questionnaire LILIBETH-7 Date LILIBETH - 7 assessed: 08/24/25 Source: Developed by Drs. Lukasz Canales, Lauren Varghese, Patric Pride and colleagues, with an educational mally from [employer]. Review of Systems Const Denies headache(s) Eyes Denies loss of vision ENT Denies vertigo, Denies dizziness, Denies headache(s) and Denies sore throat Card Denies chest pain, Denies leg edema and Denies lightheadedness Resp Denies cough, Denies hemoptysis and Denies wheezing GI Denies abdominal pain, Denies melena, Denies constipation, Denies diarrhea and Denies vomiting Denies dysuria, Denies urinary frequency and Denies urinary urgency Musc Denies arthralgias, Denies joint swelling, Denies numbness and Denies tingling Neuro Denies Abnormal speech present, Denies behavioral changes, Denies vertigo, Denies dizziness, Denies headache(s), Denies loss of vision, Denies memory loss, Denies numbness and Denies tingling Psych Denies anxiety, Denies behavioral changes, Denies depression, Denies memory loss and Denies panic attacks Hasmukh/Lymph Denies easy bleeding and Denies easy bruising Aller/Immun Denies wheezing Physical exam (Primary Care) Vital Signs: Last Vital Signs Temp 97.3 F 08/18/25 15:17 Pulse 95 08/18/25 15:17 BP 140/84 H 08/18/25 15:17 Pulse Ox 98 08/18/25 15:17 Oxygen Delivery Method Room Air 08/18/25 15:17 BMI result Body Mass Index 40.1 Tobacco/Smoking Status: Tobacco use Status Tobacco use date assessed 08/18/25 08/18/25 15:20 Patient Tobacco Use Status Never used Tobacco 08/18/25 15:20 Tobacco use type Smokeless Tobacco 08/18/25 15:20 e-Cigarette/Vaping Use Currently Using 08/18/25 15:20 Thrive Assessment: Date of Thrive Assessment Date Thrive assessed 08/02/25 08/18/25 15:20 Currently or been in a relationship where the following occur: No concerns reported Const General: healthy appearing, no acute distress, alert and awake Nutritional Appearance: well nourished Orientation/consciousness: oriented to person, oriented to place and oriented to time [facility] Ears: TM's normal bilaterally General nose exam: Normal nasal mucous membranes and turbinates present Eyes Conjunctivae: conjunctivae normal Sclerae: sclerae normal Pupils: Equal, round and reactive pupils present Neck Other: Neck: Yes no lymphadenopathy and Yes no JVD Thyroid: Thyroid normal Carotids: no bruits Resp Effort & Inspection: normal respiratory effort and not tachypneic Auscultation: no crackles, no rales, no rhonchi and no wheezes Cardio Rate: regular rate Rhythm: regular rhythm Heart sounds: no murmurs and normal S1 and S2 GI Palpation (GI): Soft to palpation, nontender, no hepatomegaly and no splenomegaly Auscultation: normal bowel sounds Skin General skin exam: no rashes or lesions noted and dry skin Neuro General: oriented to person, oriented to place and oriented to time Cranial nerves: Yes Equal, round and reactive pupils present Speech: No Abnormal speech present Gait exam (Neuro): Normal gait present Motor exam (neuro): no tremor noted Extrem Right upper extremity: full ROM Left upper extremity: full ROM Right lower extremity: full ROM; no edema Left lower extremity: full ROM; no edema Psych Mental Status: mental status grossly normal Speech and movement: Normal speech and movement present Affect: normal affect Attitude: cooperative Thought process: Normal thought process present Coding Level of Care Code Est Pt Level 4 (53383) Diagnoses Lump on neck R22.1 Strain of left shoulder, subsequent encounter S46.912D Encounter type: subsequent encounter Class 3 obesity E66.813 Assessment & Plan Assessment & Plan (1) Lump on neck: Code(s): R22.1 - Localized swelling, mass and lump, neck Category: Medical Plan: The plan for the cervical mass includes obtaining a CT scan of the neck to assess the mass further and a referral to a general surgeon for evaluation and potential removal if necessary. (2) Left shoulder strain: Code(s): S46.912A - Strain of unspecified muscle, fascia and tendon at shoulder and upper arm level, left arm, initial encounter Category: Medical Qualifiers: Encounter type: subsequent encounter Qualified Code(s): S46.912D - Strain of unspecified muscle, fascia and tendon at shoulder and upper arm level, left arm, subsequent encounter Plan: Patient would like to get x-rays of his left shoulder as he has been having some left shoulder pain possibly due to compensating for his right shoulder issue. He is due for physical therapy on his right shoulder. (3) Class 3 obesity: Code(s): E66.813 - Obesity, class 3 Category: Medical Plan: For obesity, weight management strategies are discussed, including dietary changes and the potential use of appetite suppressants like phentermine to aid in weight loss. The patient is advised to consider lifestyle modifications, such as reducing energy drink consumption and incorporating more physical activity into his routine. Orders: Orders 2 CT soft tissue neck w IV con 08/18/25 R22.1 - Localized swelling, mass and lump, neck XR shoulder LT min 2V 08/18/25 S46.912A - Strain of unspecified muscle, fascia and tendon at shoulder and upper arm level, left arm, initial encounter TSH reflex Free T4 08/18/25 R22.1 - Localized swelling, mass and lump, neck Referrals 2 General Surgery Referral R22.1 - Localized swelling, mass and lump, neck Medications: New 2 phentermine must administer 30 minutes before or 1-2 hours after breakfast 37.5 mg PO DAILY 28 caps 0RF 28 days E66.813 - Obesity, class 3
[2025-08-18 15:17] VITALS: BP 140/84; PULSE 95; TEMP 36.3; O2SAT 98; BMI 40.1
--- OUTSIDE RECORDS SUMMARY | 2025-08-18 16:32 | XMS_ITS | Encounter Summary ---
Author Organization [facility] Address [address] [place] [address] Phone Care Team Providers Care Ingot Supervisor Name Role Phone Arturo Cheung MD Primary Care Provider Unavailabl e Encounter Details Date Type Department Care Team (Late st Contact Info) Description 06/03/2011 Documentation [facility] [address] [place], [place] [phone] Family Medicine, Physician [address] [place] [address] Social History Tobacco Use Types Packs/Day Years [...] on filedocumented in this encounter Care Teams Ingot Supervisor Relationship Specialty Start Date End Date Arturo Cheung MD PCP - General 06/27/17 documented as of this encounter
--- OUTSIDE RECORDS SUMMARY | 2025-08-18 16:32 | XMS_ITS | Encounter Summary ---
Author Organization [facility] Address [address] [place] [address] Phone Care Team Providers Care Social Security Benefits Interviewer Name Role Phone Arturo Cheung MD Primary Care Provider Unavailabl e Encounter Details Date Type Department Care Team (Late st Contact Info) Description 05/08/2012 Documentation [facility] [address] [place], [place] [phone] Family Medicine, Physician [address] [place] [address] Social History Tobacco Use Types Packs/Day Years [...] on filedocumented in this encounter Care Teams Social Security Benefits Interviewer Relationship Specialty Start Date End Date Arturo Cheung MD PCP - General 06/27/17 documented as of this encounter
--- OUTSIDE RECORDS SUMMARY | 2025-08-18 16:32 | XMS_ITS | Encounter Summary ---
Author Organization [facility] Address [address] [place] [address] Phone Care Team Providers Care Fur Vault Attendant Name Role Phone Arturo Cheung MD Primary Care Provider Unavailabl e Encounter Details Date Type Department Care Team (Late st Contact Info) Description 07/03/2017 Conversion Encounter [facility] - [address] [address] Social History Tobacco Use Types Packs/Day Years [...] on filedocumented in this encounter Care Teams Fur Vault Attendant Relationship Specialty Start Date End Date Arturo Cheung MD PCP - General 06/27/17 documented as of this encounter
--- OUTSIDE RECORDS SUMMARY | 2025-08-18 16:32 | XMS_ITS | Encounter Summary ---
Author Organization [facility] Address [address] [place] [address] Phone Care Team Providers Care Food And Nutrition Supervisor Name Role Phone Arturo Cheung MD Primary Care Provider Unavailabl e Encounter Details Date Type Department Care Team (Late st Contact Info) Description 06/03/2011 Documentation [facility] [address] [place], [place] [phone] Family Medicine, Physician [address] [place] [address] Social History Tobacco Use Types Packs/Day Years [...] on filedocumented in this encounter Care Teams Food And Nutrition Supervisor Relationship Specialty Start Date End Date Arturo Cheung MD PCP - General 06/27/17 documented as of this encounter
--- OUTSIDE RECORDS SUMMARY | 2025-08-18 16:32 | XMS_ITS | Encounter Summary ---
Author Organization [facility] Address [address] [place] [address] Phone Care Team Providers Care Radar Technician Name Role Phone Arturo Cheung MD Primary Care Provider Unavailabl e Encounter Details Date Type Department Care Team (Late st Contact Info) Description 03/11/2012 Documentation [facility] [address] [place], [place] [phone] Family Medicine, Physician [address] [place] [address] Social History Tobacco Use Types Packs/Day Years [...] on filedocumented in this encounter Care Teams Radar Technician Relationship Specialty Start Date End Date Arturo Cheung MD PCP - General 06/27/17 documented as of this encounter
--- OUTSIDE RECORDS SUMMARY | 2025-08-18 16:32 | XMS_ITS | Clinical Summary ---
Author Organization [facility] Address [address] [place] [address] Phone Care Team Providers Care Ct Scan Technologist Name Role Phone Arturo Cheung MD Primary [...] age to complete this topic Care Teams Ct Scan Technologist Relationship Specialty Start Date End Date Arturo Cheung MD PCP - General 06/27/17
--- OUTSIDE RECORDS SUMMARY | 2025-08-18 16:32 | XMS_ITS | Encounter Summary ---
Author Organization [facility] Address [address] [place] [address] Phone Care Team Providers Care Search Optimization Analyst Name Role Phone Arturo Cheung MD Primary Care Provider Unavailabl e Encounter Details Date Type Department Care Team (Late st Contact Info) Description 2011 Documentation [facility] [address] [place], [place] [phone] Family Medicine, Physician [address] [place] [address] Social History Tobacco Use Types Packs/Day Years [...] on filedocumented in this encounter Care Teams Search Optimization Analyst Relationship Specialty Start Date End Date Arturo Cheung MD PCP - General 06/27/17 documented as of this encounter
--- OUTSIDE RECORDS SUMMARY | 2025-08-18 16:32 | XMS_ITS | Encounter Summary ---
Author Organization [facility] Address [address] [place] [address] Phone Care Team Providers Care Mobile Service Rv Technician Name Role Phone Arturo Cheung MD Primary Care Provider Unavailabl e Encounter Details Date Type Department Care Team (Late st Contact Info) Description 06/03/2011 Documentation [facility] [address] [place], [place] [phone] Family Medicine, Physician [address] [place] [address] Social History Tobacco Use Types Packs/Day Years [...] on filedocumented in this encounter Care Teams Mobile Service Rv Technician Relationship Specialty Start Date End Date Arturo Cheung MD PCP - General 06/27/17 documented as of this encounter
== END 2025-08-18 15:48 | disposition home or self-care (01) ==
LOC: HO.HMCH 15:09
PROVIDERS: PCP Physician Assistant; Visit Provider Physician Assistant
DX: R22.1 Localized swelling, mass and lump, neck (principal); E66.813 Obesity, class 3; Z68.41 Body mass index [BMI] 40.0-44.9, adult; S46.912D Strain of unspecified muscle, fascia and tendon at shoulder and upper arm level, left arm, subsequent encounter

== ENCOUNTER 2025-08-18 15:09 | Outpatient (REF) | payer OTHER, SELFPAY ==
--- NOTE | ~2025-08-18 | XR_ITS ---
EXAMINATION: XR SHOULDER, LEFT CLINICAL INFORMATION: S46.912A - Strain of unspecified muscle, fascia and tendon at shoulder a... COMPARISON: None available. TECHNIQUE: AP external rotation, Grashey, scapular Y, and axillary views of the left shoulder. FINDINGS: There is no degenerative change. There is no dislocation. There is no AC joint separation. XR/XR shoulder LT min 2V IMPRESSION: Unremarkable left shoulder. Electronically signed by: Martin Pearson MD 08/18/2025 05:26 PM EDT
== END 2025-08-18 15:10 | disposition home or self-care (01) ==
LOC: HO.XRAY 15:09
PROVIDERS: PCP Physician Assistant; Visit Provider Physician Assistant
DX: S46.912D Strain of unspecified muscle, fascia and tendon at shoulder and upper arm level, left arm, subsequent encounter (principal); R22.1 Localized swelling, mass and lump, neck; M25.511 Pain in right shoulder; R03.0 Elevated blood-pressure reading, without diagnosis of hypertension; E66.813 Obesity, class 3; Z68.41 Body mass index [BMI] 40.0-44.9, adult; X58.XXXD Exposure to other specified factors, subsequent encounter
CPT/HCPCS: 73030

== ENCOUNTER → 2025-08-18 16:04 | Outpatient (BNV) | payer OTHER, SELFPAY | PROVIDERS: PCP Physician Assistant; Visit Provider Radiology Diagnostic Radiology | DX: M25.512 Pain in left shoulder (principal) | CPT/HCPCS: 73030 ==

== ENCOUNTER 2025-09-08 14:49 | Outpatient (REF) | payer OTHER, SELFPAY ==
--- NOTE | ~2025-09-08 | CT_ITS ---
EXAMINATION: CT SOFT TISSUE NECK WITH CONTRAST CLINICAL INFORMATION: Enlarging right anterior neck mass, evaluate for solid or cystic mass. 29-year-old male. COMPARISON: None available. TECHNIQUE: Following the intravenous administration of 100 mL of Omnipaque 350 intravenous contrast, helical imaging was performed in the axial plane with generation of coronal and sagittal reformatted images. This CT examination was performed using dose optimization techniques as appropriate, variously including the following: *Automated exposure control *Adjustment of mA and/or kV according to patient size (this includes techniques or standardized protocols for targeted exams where dose is matched to indication/reason for exam; i.e. extremities or head) *Use of iterative reconstruction technique FINDINGS: Lymph Nodes: -There is a cluster of abnormal enlarged lymph nodes in the right supraclavicular region, the largest measuring 2.3 x 1.4 x 1.7 cm (series 2, image 76; series 4, image 36). -The second largest is immediately anteroinferior and measures 1.4 x 1.8 x 1.3 cm (series 2, image 84). There are several smaller clustered lymph nodes present in this region. -No additional abnormal lymphadenopathy is present in the neck. No abnormal left supraclavicular lymph nodes are identified. Carotid Sheath Structures: -Normal. Salivary Glands: -The parotid glands, submandibular glands, and sublingual glands are normal. Tongue Base/Floor of Mouth: -Normal Mucosal Space: -No abnormal enhancing mass is present. -Prominence of the adenoidal soft tissues is present, likely reactive. In addition, mild prominence of the palatine tonsils is also present, also likely reactive. -Normal epiglottis, aryepiglottic folds, and soft palate. Visceral Space: -Thyroid gland: Normal. -Superior esophagus is normal. -The subglottic trachea is normal. -The larynx is normal. Retropharangeal Space: -Normal. Parapharyngeal Fat Planes: -Normal and undisturbed. City Marshal Spaces: -Normal. Anterior Cervical Space: -Normal. Imaged Intracranial Contents: -No mass effect, edema, or abnormal enhancement. Cortical and dural venous sinuses are patent. The skull base is normal. Globes and Orbits: -Normal. Paranasal Sinuses/Mastoids/Tympanic Spaces: -Normally aerated bilaterally. Lung Apices and Superior Mediastinal Structures: -Imaged lung apices are clear and superior mediastinal structures are normal. Bony Structures: -No suspicious bone lesions. No fractures. -Normal TM joints. CT/CT soft tissue neck w IV con IMPRESSION: 1. Cluster of abnormally enlarged right supraclavicular lymph nodes, the largest measuring 2.3 x 1.4 x 1.7 cm. Etiology is uncertain based upon this examination. Percutaneous biopsy could be considered. 2. No additional abnormal lymph nodes or masses within the neck. 3. Mild prominence of the adenoidal tissues and palatine tonsillar tissues, presumably reactive in etiology. Electronically signed by: Jose Ramsay MD 09/08/2025 04:31 PM EDT
[2025-09-08] MEDS: iohexoL 350 MG/ML 100 ML INFUS..BTL IV (15:17)
--- OUTSIDE RECORDS SUMMARY | 2025-09-08 18:40 | XMS_ITS | Encounter Summary ---
Author Organization [facility] Address [address] [place] [phone] Phone Care Team Providers Care Salon Assistant Name Role Phone Arturo Cheung MD Primary Care Provider Unavailabl e Encounter Details Date Type Department Care Team (Late st Contact Info) Description 06/03/2011 Documentation [facility] [address] [place], [place] [phone] Family Medicine, Physician [address] [place] [address] Social History Tobacco Use Types Packs/Day Years [...] on filedocumented in this encounter Care Teams Salon Assistant Relationship Specialty Start Date End Date Arturo Cheung MD PCP - General 06/27/17 documented as of this encounter
--- OUTSIDE RECORDS SUMMARY | 2025-09-08 18:40 | XMS_ITS | Data Portability ---
Author Organization [facility] Address [address] [place] [address] Assessment No assessment recorded. Plan of Treatment Reminders Order Date Submit Date Provider Last Modified By Organization Details Last Modified Time Details Appointments None record ed. Lab None record ed. Referral None record ed. Procedures None record ed. Surgeries None record ed. Imaging None record ed. Medication Orders None record ed. Patient TargetsNo targets recorded. Patient InstructionsNo instructions recorded. Reason for Referral None Reported. Procedures Surgical History Date Name Laterality Status Provider Name and Address Organization Details Recorded Time 3 OC-BAT Screening Template DOT completed IRIS COUVERTIER PA - [facility] 12/24/2022 16:23:58 3 OC-UDS Send Out Template DOT completed IRIS COUVERTIER PA - [facility] 12/24/2022 16:22:26 Imaging Results None recorded. Procedure Notes None recorded. Medical Equipment None Reported. Vitals None Recorded Social History None recorded. Functional Status None recorded. Mental Status None recorded. Family History Nothing Reported. Medical History No medical history recorded. Past Encounters Encounter ID Performer Location Encounter Start Date Encounter Closed Date Diagnosis/Indication Diagnosis SNOMED-CT Code Diagnosis ICD10 Code Diagnosis IMO Codes Diagnosis [facility] [id number] [facility] [address] [place] [address] 09/12/2022 12:44:28 09/12/2022 13:36:38 [id number] M[facility] CAMPBELL [facility] [address] [place] [address] 12/24/2022 14:19:37 12/24/2022 16:30:04 History and physical examination, pre-employment [id number] Z02.1 Health Concerns Section Related Observation LastModified by Organization Detai ls LastModified Time None Recorded Concern Status LastModified by Organization Details LastModified Time None Recorded Advance Directives Directive None Recorded Payers Insurance Date Sequence Insurance Name Policy Number Policy Carrillo Covered Member ID Carrillo Member ID Guarantor Name 12/24/2022 -[facility] - TPA ACCT Artemio Redmond
--- OUTSIDE RECORDS SUMMARY | 2025-09-08 18:40 | XMS_ITS | Encounter Summary ---
Author Organization [facility] Address [address] [place] [phone] Phone Care Team Providers Care Co Op Name Role Phone Arturo Cheung MD Primary Care Provider Unavailabl e Encounter Details Date Type Department Care Team (Late st Contact Info) Description 06/03/2011 Documentation [facility] [address] [place], [place] [phone] Family Medicine, Physician [address] [place] [address] Social History Tobacco Use Types Packs/Day Years [...] on filedocumented in this encounter Care Teams Co Op Relationship Specialty Start Date End Date Arturo Cheung MD PCP - General 06/27/17 documented as of this encounter
--- OUTSIDE RECORDS SUMMARY | 2025-09-08 18:40 | XMS_ITS | Encounter Summary ---
Author Organization [facility] Address [address] [place] [address] Phone Care Team Providers Care Chief Lock Tender Operator Name Role Phone Arturo Cheung MD Primary Care Provider Unavailabl e Encounter Details Date Type Department Care Team (Late st Contact Info) Description 07/03/2017 Conversion Encounter [facility] - [address] [address] Social History Tobacco Use Types Packs/Day Years [...] on filedocumented in this encounter Care Teams Chief Lock Tender Operator Relationship Specialty Start Date End Date Arturo Cheung MD PCP - General 06/27/17 documented as of this encounter
--- OUTSIDE RECORDS SUMMARY | 2025-09-08 18:40 | XMS_ITS | Encounter Summary ---
Author Organization [facility] Address [address] [place] [address] Phone Care Team Providers Care Medical Review Coordinator Name Role Phone Arturo Cheung MD Primary Care Provider Unavailabl e Encounter Details Date Type Department Care Team (Late st Contact Info) Description 03/11/2012 Documentation [facility] [address] [place], [place] [phone] Family Medicine, Physician [address] [place] [address] Social History Tobacco Use Types Packs/Day Years [...] on filedocumented in this encounter Care Teams Medical Review Coordinator Relationship Specialty Start Date End Date Arturo Cheung MD PCP - General 06/27/17 documented as of this encounter
--- OUTSIDE RECORDS SUMMARY | 2025-09-08 18:40 | XMS_ITS | Clinical Summary ---
Author Organization [facility] Address [address] [place] [address] Phone Care Team Providers Care Research Professor Of Biostatistics Name Role Phone Arturo Cheung MD Primary [...] age to complete this topic Care Teams Research Professor Of Biostatistics Relationship Specialty Start Date End Date Arturo Cheung MD PCP - General 06/27/17
--- OUTSIDE RECORDS SUMMARY | 2025-09-08 18:40 | XMS_ITS | Encounter Summary ---
Author Organization [facility] Address [address] [place] [address] Phone Care Team Providers Care Biofuels Manager Name Role Phone Arturo Cheung MD Primary Care Provider Unavailabl e Encounter Details Date Type Department Care Team (Late st Contact Info) Description 05/08/2012 Documentation [facility] [address] [place], [place] [phone] Family Medicine, Physician [address] [place] [address] Social History Tobacco Use Types Packs/Day Years [...] on filedocumented in this encounter Care Teams Biofuels Manager Relationship Specialty Start Date End Date Arturo Cheung MD PCP - General 06/27/17 documented as of this encounter
--- OUTSIDE RECORDS SUMMARY | 2025-09-08 18:40 | XMS_ITS | Encounter Summary ---
Author Organization [facility] Address [address] [place] [address] Phone Care Team Providers Care Chemical Lab Supervisor Name Role Phone Arturo Cheung MD Primary Care Provider Unavailabl e Encounter Details Date Type Department Care Team (Late st Contact Info) Description 2011 Documentation [facility] [address] [place], [place] [phone] Family Medicine, Physician [address] [place] [address] Social History Tobacco Use Types Packs/Day Years [...] on filedocumented in this encounter Care Teams Chemical Lab Supervisor Relationship Specialty Start Date End Date Arturo Cheung MD PCP - General 06/27/17 documented as of this encounter
--- OUTSIDE RECORDS SUMMARY | 2025-09-08 18:40 | XMS_ITS | Encounter Summary ---
Author Organization [facility] Address [address] [place] [address] Phone Care Team Providers Care Cordwood Cutter Helper Name Role Phone Arturo Cheung MD Primary Care Provider Unavailabl e Encounter Details Date Type Department Care Team (Late st Contact Info) Description 06/03/2011 Documentation [facility] [address] [place], [place] [phone] Family Medicine, Physician [address] [place] [address] Social History Tobacco Use Types Packs/Day Years [...] on filedocumented in this encounter Care Teams Cordwood Cutter Helper Relationship Specialty Start Date End Date Arturo Cheung MD PCP - General 06/27/17 documented as of this encounter
== END 2025-09-08 14:50 | disposition home or self-care (01) ==
LOC: HO.CT 14:49
PROVIDERS: PCP Physician Assistant; Visit Provider Physician Assistant
DX: R22.1 Localized swelling, mass and lump, neck (principal)
CPT/HCPCS: 70491; Q9967

== ENCOUNTER → 2025-09-08 14:52 | Outpatient (BNV) | payer OTHER, SELFPAY | PROVIDERS: PCP Physician Assistant; Visit Provider Radiology Diagnostic Radiology | DX: R59.0 Localized enlarged lymph nodes (principal) | CPT/HCPCS: 70491 ==

== ENCOUNTER 2025-09-29 11:02 | Outpatient (AMB) | payer OTHER, SELFPAY ==
--- NOTE | 2025-09-29 11:12 | A.OFFVIS_ITS ---
Vital Signs 09/29/25 11:19 Height 5 ft 6 in Weight 254 lb 6 oz BMI 41.1 Intake Visit Reasons: Mass and lump, neck Intake Note: Patient presents for an assessment for biopsy of the lymph nodes, neck. Pt c/o; reports no complaints at this time. DI: 08/15/2025: shoulder x-ray 08/18/2025: Shoulder x-ray 09/08/25:Soft tissue Neck CT 02/21/2021: Head/Neck CTA Tongue And Groove Machine Feeder Required: No Accompanied by: Self / Same As Patient Allergies No Known Allergies Allergy (Verified 09/29/25 11:19) HPI HPI Mass and lump, neck: Details: 29-year-old male referred for cervical lymphadenopathy. He has felt a lump on the right neck for about 3 months now. He thinks that this may have increased in size a little bit. He had a CAT scan done of the area and this shows a cluster of abnormally enlarged lymph nodes in the right supraclavicular region largest being 2.3 cm in widest dimension. There were actually multiple of these surgeon lymph nodes in the area He denies night sweats. He denies fever, chills or weight loss. He denies any other systemic complaints He feels well overall. He is not a smoker. [facility] Medical History Cervical lymphadenopathy Asthma (03/27/21) Surgical History History of adenoidectomy Family History Father Congenital heart defect Mother No problems noted. Social History Household Members: None Housing: Apartment Alcohol intake: current Alcohol intake frequency: a few times a month Alcohol type: hard liquor Patient Tobacco Use Status: Never used Tobacco Tobacco use type: Smokeless Tobacco e-Cigarette/Vaping Use: Currently Using Second Hand Smoke Exposure: No service: No Current occupational status: employed Current occupation: courier driver Cognitive needs: No Hearing needs: No Vision needs: No Review of Systems Const Denies chills and Denies fever(s) Card Denies chest pain, Denies dyspnea and Denies dyspnea on exertion Resp Denies cough, Denies dyspnea and Denies dyspnea on exertion GI Denies hematochezia and Denies change in bowel habits Denies hematuria and Denies difficulty urinating Musc Denies back pain and Denies limited range of motion Neuro Denies focal weakness and Denies convulsions Psych Denies depression and Denies mood swings Physical Exam Vital Signs: BMI result Body Mass Index 41.1 Const General: comfortable and no acute distress Orientation/consciousness: patient oriented x3 Neck Other: Palpable enlarged lymph node, more than 2 cm, on the right supraclavicular area of the neck Neck: Yes no lymphadenopathy Resp Auscultation: clear to auscultation bilaterally Cardio Rhythm: regular rhythm GI Palpation (GI): Soft to palpation, nontender and no guarding Neuro General: patient oriented x3 Assessment & Plan Assessment & Plan (1) Cervical lymphadenopathy: Code(s): R59.0 - Localized enlarged lymph nodes Category: Medical Plan: He has a cluster of enlarged lymph nodes on the right supraclavicular area as described above on the CAT scan. I am going to order for an ultrasound-guided biopsy as recommended by the radiologist. I explained to him the technique of this procedure. I will see him again in the office after the path report is back He understands the plan well. He denies any systemic symptoms. Orders: Orders US biopsy lymph node Today R59.0 - Localized enlarged lymph nodes Coding Level of Care Code New Pt Level 3 (02220) Diagnoses Cervical lymphadenopathy R59.0
[2025-09-29 11:19] VITALS: BMI 41.1
--- OUTSIDE RECORDS SUMMARY | 2025-09-29 13:48 | XMS_ITS | Encounter Summary ---
Author Organization [facility] Address [address] [place] [address] Phone Care Team Providers Care Senior Office Support Assistant Sosa Name Role Phone Arturo Cheung MD Primary Care Provider Unavailabl e Encounter Details Date Type Department Care Team (Late st Contact Info) Description 06/03/2011 Documentation [facility] [address] [place], [place] [phone] Family Medicine, Physician [address] [place] [address] Social History Tobacco Use Types Packs/Day Years [...] on filedocumented in this encounter Care Teams Senior Office Support Assistant Sosa Relationship Specialty Start Date End Date Arturo Cheung MD PCP - General 06/27/17 documented as of this encounter
--- OUTSIDE RECORDS SUMMARY | 2025-09-29 13:48 | XMS_ITS | Encounter Summary ---
Author Organization [facility] Address [address] [place] [address] Phone Care Team Providers Care Soil Technician Name Role Phone Arturo Cheung MD Primary Care Provider Unavailabl e Encounter Details Date Type Department Care Team (Late st Contact Info) Description 07/03/2017 Conversion Encounter [facility] - [address] [address] Social History Tobacco Use Types Packs/Day Years [...] on filedocumented in this encounter Care Teams Soil Technician Relationship Specialty Start Date End Date Arturo Cheung MD PCP - General 06/27/17 documented as of this encounter
--- OUTSIDE RECORDS SUMMARY | 2025-09-29 13:48 | XMS_ITS | Encounter Summary ---
Author Organization [facility] Address [address] [place] [address] Phone Care Team Providers Care Piano Professor Name Role Phone Arturo Cheung MD Primary Care Provider Unavailabl e Encounter Details Date Type Department Care Team (Late st Contact Info) Description 05/08/2012 Documentation [facility] [address] [place], [place] [phone] Family Medicine, Physician [address] [place] [address] Social History Tobacco Use Types Packs/Day Years [...] on filedocumented in this encounter Care Teams Piano Professor Relationship Specialty Start Date End Date Arturo Cheung MD PCP - General 06/27/17 documented as of this encounter
--- OUTSIDE RECORDS SUMMARY | 2025-09-29 13:48 | XMS_ITS | Encounter Summary ---
Author Organization [facility] Address [address] [place] [address] Phone Care Team Providers Care Human Resources Communications Manager Name Role Phone Arturo Cheung MD Primary Care Provider Unavailabl e Encounter Details Date Type Department Care Team (Late st Contact Info) Description 06/03/2011 Documentation [facility] [address] [place], [place] [phone] Family Medicine, Physician [address] [place] [address] Social History Tobacco Use Types Packs/Day Years [...] on filedocumented in this encounter Care Teams Human Resources Communications Manager Relationship Specialty Start Date End Date Arturo Cheung MD PCP - General 06/27/17 documented as of this encounter
--- OUTSIDE RECORDS SUMMARY | 2025-09-29 13:48 | XMS_ITS | Clinical Summary ---
Author Organization [facility] Address [address] [place] [address] Phone Care Team Providers Care Bulk Tank Car Unloader Name Role Phone Arturo Cheung MD Primary [...] age to complete this topic Care Teams Bulk Tank Car Unloader Relationship Specialty Start Date End Date Arturo Cheung MD PCP - General 06/27/17
--- OUTSIDE RECORDS SUMMARY | 2025-09-29 13:48 | XMS_ITS | Encounter Summary ---
Author Organization [facility] Address [address] [place] [address] Phone Care Team Providers Care Cleaner And Polisher Name Role Phone Arturo Cheung MD Primary Care Provider Unavailabl e Encounter Details Date Type Department Care Team (Late st Contact Info) Description 03/11/2012 Documentation [facility] [address] [place], [place] [phone] Family Medicine, Physician [address] [place] [address] Social History Tobacco Use Types Packs/Day Years [...] on filedocumented in this encounter Care Teams Cleaner And Polisher Relationship Specialty Start Date End Date Arturo Cheung MD PCP - General 06/27/17 documented as of this encounter
--- OUTSIDE RECORDS SUMMARY | 2025-09-29 13:48 | XMS_ITS | Encounter Summary ---
Author Organization [facility] Address [address] [place] [address] Phone Care Team Providers Care Sales Attendant Building Materials Name Role Phone Arturo Cheung MD Primary Care Provider Unavailabl e Encounter Details Date Type Department Care Team (Late st Contact Info) Description 06/03/2011 Documentation [facility] [address] [place], [place] [phone] Family Medicine, Physician [address] [place] [address] Social History Tobacco Use Types Packs/Day Years [...] on filedocumented in this encounter Care Teams Sales Attendant Building Materials Relationship Specialty Start Date End Date Arturo Cheung MD PCP - General 06/27/17 documented as of this encounter
--- OUTSIDE RECORDS SUMMARY | 2025-09-29 13:48 | XMS_ITS | Encounter Summary ---
Author Organization [facility] Address [address] [place] [address] Phone Care Team Providers Care Family Advocate Name Role Phone Arturo Cheung MD Primary Care Provider Unavailabl e Encounter Details Date Type Department Care Team (Late st Contact Info) Description 2011 Documentation [facility] [address] [place], [place] [phone] Family Medicine, Physician [address] [place] [address] Social History Tobacco Use Types Packs/Day Years [...] on filedocumented in this encounter Care Teams Family Advocate Relationship Specialty Start Date End Date Arturo Cheung MD PCP - General 06/27/17 documented as of this encounter
== END 2025-09-29 11:39 | disposition home or self-care (01) ==
LOC: HO.HGS 11:03
PROVIDERS: PCP Physician Assistant; Visit Provider Surgery
DX: R59.0 Localized enlarged lymph nodes (principal)
CPT/HCPCS: 99203

== ENCOUNTER 2025-10-25 09:43 | Outpatient (AMB) | payer OTHER, SELFPAY ==
[2025-10-25 10:06] VITALS: BP 120/86; PULSE 77; RESP 18; O2SAT 96; BMI 40.8
--- NOTE | 2025-10-25 10:06 | MHC.PC.OV ---
Vital Signs 10/25/25 10:06 Height 5 ft 6 in Weight 253 lb BMI 40.8 BP 120/86 Blood Pressure Location Lt brachial Position Sitting Respiration 18 Pulse 77 Pulse Source Pulse Oximeter Temp Source Temporal Artery Scan Pulse Oximetry (%) 96 Oxygen Delivery Method Room Air Intake Visit Reasons: Annual Exam Indigo Mixer Required: No Accompanied by: Self / Same As Patient Allergies No Known Allergies Allergy (Verified 10/25/25 10:15) Medication List - Last Reconciled 10/25/25 by Ja Dangelo PA-C celecoxib (Celebrex) 200 mg PO DAILY PRN 30 days sildenafil (Viagra) 100 mg PO DAILY 7 days Tobacco use date assessed: 10/25/25 Dental Screening Dental Screen Date: 10/25/25 Did you have a dental visit in the last 12 months?: No Did you have a dental problem in the last 6 months where you did not have access to dental care?: No Was dental information given to patient?: No HPI Annual Exam HPI Details Patient is a 30-year-old male here today for routine annual physical Patient has a past medical history significant for class 3 obesity, cervical lymphadenopathy, asthma. Concern--> The patient reports significant daytime fatigue and non-restorative sleep, regardless of sleeping for two, eight, or more hours. His partner has observed loud snoring, and the patient sometimes feels awake while asleep. 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 Right shoulder pain: The patient also has a history of shoulder arthritis, with minimal spurring at the acromioclavicular joint, causing pain and affecting his ability to perform work-related tasks. Physical therapy has been recommended, unfortunately has not been called to start physical therapy thus will place a new order for PT .. Elevated blood pressure readings: Blood pressure today in office much better. .. Cervical lymphadenopathy: He has a history of a neck lump, for which he has seen Dr. Pastor, a general surgeon. A CT scan revealed a mass in the lymph nodes, and a biopsy is scheduled for next . He also has a urology appointment scheduled for the . Class 3 obesity: Unfortunately has not lost much weight since last office visit, had tried phentermine though felt very sleepy with the medication. We discuss perhaps trying a GLP 1 dedicated for obstructive sleep apnea though he is apprehensive on diagnosis obstructive sleep apnea at this time. .. Vaccine: Declines FLu vaccine , up-to-date with tetanus vaccine [facility] Medical History Cervical lymphadenopathy Asthma (03/27/21) Surgical History History of adenoidectomy Family History Father Congenital heart defect Mother No problems noted. Social History (Updated 10/25/25 @ 10:18 by Ja Dangelo PA-C) Household Members: None Housing: Apartment Alcohol intake: current Alcohol intake frequency: a few times a month Alcohol type: hard liquor Patient Tobacco Use Status: Never used Tobacco Tobacco use type: Smokeless Tobacco e-Cigarette/Vaping Use: Currently Using Second Hand Smoke Exposure: No service: No Current occupational status: employed Current occupation: retail delivery driver Cognitive needs: No Hearing needs: No Vision needs: No Questionnaire Thrive Questionnaire Date Thrive assessed: 10/25/25 I am a: Patient What is your living situation today?: I have a steady place to live Within the past 12 months, did the food you bought not last and you didn't have the money to get more?: Never true Within the past 12 months, did you worry whether your food would run out before you got money to buy more?: Never true Do you have trouble paying for medicines?: No Do you have trouble getting transportation to medical appointments?: No Do you have trouble paying your heating and electricity bill?: No Do you have trouble taking care of your child, family member or friend?: No Do you have trouble with day-to-day activities such as bathing, preparing meals, shopping, managing finances, etc.?: No Are you currently unemployed and looking for a job?: No Are you interested in more education?: No Please select the resources that you would like help with: None Currently or been in a relationship where the following occur: No concerns reported THRIVE Score: 0 LILIBETH-7 AMB Questionnaire LILIBETH-7 Date LILIBETH - 7 assessed: 08/24/25 Source: Developed by Drs. Lukasz Canales, Lauren Varghese, Patric Pride and colleagues, with an educational mally from [employer]. Review of Systems Const Denies body aches, Denies chills, Denies excessive sweating, Denies fatigue, Denies fever(s) and Denies headache(s) Eyes Denies blurry vision ENT Denies dysphagia, Denies vertigo, Denies dizziness, Denies headache(s), Denies hearing loss and Denies tinnitus Card Denies chest pain, Denies chest pain with activity, Denies syncope, Denies irregular heart rhythm and Denies dyspnea Resp Denies chest congestion, Denies cough, Denies hemoptysis, Denies dyspnea and Denies wheezing GI Denies abdominal pain, Denies melena, Denies hematochezia, Denies coffee ground emesis, Denies dysphagia, Denies diarrhea, Denies nausea and Denies vomiting Denies difficulty urinating, Denies dysuria, Denies urinary frequency, Denies urinary hesitancy and Denies urinary urgency Musc Denies arthralgias, Denies limited range of motion, Denies muscle cramps and Denies muscle weakness Skin/Breast Denies rash and Denies skin ulcer Neuro Denies Abnormal speech present, Denies confusion, Denies vertigo, Denies dizziness, Denies syncope, Denies headache(s), Denies memory loss and Denies seizure-like activity Psych Denies anxiety, Denies confusion, Denies depression, Denies memory loss, Denies panic attacks and Denies paranoia Endo Denies excessive sweating, Denies fatigue, Denies flushing, Denies polydipsia and Denies polyuria Aller/Immun Denies wheezing Physical exam (Primary Care) Vital Signs: Last Vital Signs Pulse 77 10/25/25 10:06 Resp 18 10/25/25 10:06 BP 120/86 10/25/25 10:06 Pulse Ox 96 10/25/25 10:06 Oxygen Delivery Method Room Air 10/25/25 10:06 BMI result Body Mass Index 40.8 BMI Assessment/Plan discussion: High BMI High, discussed plan: lifestyle, weight reduction, dietary and physical activity Tobacco/Smoking Status: Tobacco use Status Tobacco use date assessed 10/25/25 10/25/25 10:13 Patient Tobacco Use Status Never used Tobacco 10/25/25 10:18 Tobacco use type Smokeless Tobacco 10/25/25 10:18 e-Cigarette/Vaping Use Currently Using 10/25/25 10:18 Thrive Assessment: Date of Thrive Assessment Date Thrive assessed 10/25/25 10/25/25 10:13 Currently or been in a relationship where the following occur: No concerns reported Const General: cooperative, comfortable, no acute distress, alert and awake; No confusion Orientation/consciousness: oriented to person, oriented to place, patient oriented x3 and No confusion HENMT Head: Yes normocephalic Ears: external ears normal and TM's normal bilaterally Face and sinus: No sinus tenderness Mouth: Normal oral and palatal mucosa present and tongue normal Teeth and gingiva: dentition normal and gingiva normal Throat: Yes posterior oropharynx normal, Yes tonsils normal and Yes uvula midline Eyes Conjunctivae: conjunctivae normal Sclerae: sclerae normal Pupils: Equal, round and reactive pupils present EOM: EOMs intact bilaterally Direct Ophthalmoscopy: No no photophobia Neck Neck: Yes no lymphadenopathy, No tender and Yes no JVD Thyroid: Thyroid normal Carotids: no bruits Chest Chest palpation & inspection: no tenderness Resp Effort & Inspection: normal respiratory effort, no audible wheezes, not labored and no stridor Auscultation: no crackles, no rales, no rhonchi and no wheezes Cardio Jugular venous distension: no JVD Rate: regular rate, not bradycardic and not tachycardic Rhythm: regular rhythm Bruits: no carotid bruits Peripheral pulses: Peripheral pulses 2+ throughout GI Inspection: Yes normal to inspection, No abdominal wall ecchymosis and No visible herniation Palpation (GI): Soft to palpation, nontender, no guarding, not rigid and No hepatosplenomegaly present Auscultation: normoactive bowel sounds General: Yes no CVA tenderness Back/Spine/Pelvis Back: no CVA tenderness and No back tenderness Cervical Spine: cervical ROM normal Thoracic/Lumbar Spine: thoracic and lumbar spine normal to inspection, straight leg raise negative bilaterally, No thoraco-lumbar ROM limited and No lumbar spinal tenderness Skin Lesions: no lesions Rashes: no rashes Wounds: no wounds Neuro General: oriented to person, oriented to place, patient oriented x3, CN's II-XI intact bilaterally and No confusion Cranial nerves: Yes Equal, round and reactive pupils present and Yes Normal accommodation reflex present Cognition (Neuro): normal cognition Speech: No Abnormal speech present Gait exam (Neuro): Normal gait present Motor exam (neuro): 5/5 motor strength present throughout Extrem Right upper extremity: full ROM; no cyanosis Left upper extremity: full ROM; no cyanosis Right lower extremity: no edema Left lower extremity: no edema Psych Appearance: grossly normal Mental Status: mental status grossly normal Affect: normal affect Attitude: cooperative Thought process: Normal thought process present Coding Level of Care Code Est Pt Prev Care 18-39y(09726) Diagnoses Annual physical exam Z00.00 Primary insomnia F51.01 Insomnia type: primary Supraclavicular lymphadenopathy R59.0 Class 3 obesity E66.813 Assessment & Plan Assessment & Plan (1) Annual physical exam: Code(s): Z00.00 - Encounter for general adult medical examination without abnormal findings Category: Medical Plan: As per HPI (2) Insomnia: Code(s): G47.00 - Insomnia, unspecified Category: Medical Qualifiers: Insomnia type: primary Qualified Code(s): F51.01 - Primary insomnia Plan: For the patient's sleep disturbance and excessive daytime sleepiness, which are clinically suspicious for obstructive sleep apnea, a trial of hydroxyzine 10 mg will be prescribed to take before bed. Although a home sleep study was discussed as the definitive diagnostic step, the patient declined at this time due to concerns about his DOT license. The potential benefits of diagnosing and treating sleep apnea, including eligibility for weight loss medications like Mounjaro or Zepbound and improved energy levels, were discussed. New labs will be ordered to check vitamin levels to further investigate his fatigue. (3) Supraclavicular lymphadenopathy: Code(s): R59.0 - Localized enlarged lymph nodes Category: Medical Plan: Regarding the neck mass, the patient will proceed with the scheduled biopsy next with the general surgeon, Dr. Pastor, to determine the nature of the mass, differentiating between a cyst and malignancy. (4) Class 3 obesity: Code(s): E66.813 - Obesity, class 3 Category: Medical Plan: Patient does understand his BMI is over 40 and will try to work on being more physically active and adapting to better eating habits to reduce his weight. Of note we did try phentermine for weight reduction and appetite suppressant though had side effect of drowsiness with his medication. Orders: Orders PT Evaluation and Treatment 10/25/25 M67.911 - Unspecified disorder of synovium and tendon, right shoulder Vitamin B12 and Folate 10/25/25 E53.8 - Deficiency of other specified B group vitamins, F51.01 - Primary insomnia, R40.0 - Somnolence Vitamin D 25-OH Total 10/25/25 F51.01 - Primary insomnia, R40.0 - Somnolence IRON PROFILE 10/25/25 D50.9 - Iron deficiency anemia, unspecified, F51.01 - Primary insomnia, R40.0 - Somnolence Medications: New hydroxyzine HCl 20 mg (2 x 10 mg) PO BEDTIME 30 tabs 0RF 15 days F41.9 - Anxiety disorder, unspecified, F51.01 - Primary insomnia
== END 2025-10-25 10:37 | disposition home or self-care (01) ==
LOC: HO.HMCH 09:44
PROVIDERS: PCP Physician Assistant; Visit Provider Physician Assistant
DX: Z00.00 Encounter for general adult medical examination without abnormal findings (principal); F51.01 Primary insomnia; E66.813 Obesity, class 3; Z68.41 Body mass index [BMI] 40.0-44.9, adult; R59.0 Localized enlarged lymph nodes

== ENCOUNTER 2025-11-03 09:33 | Outpatient (REF) | payer OTHER, SELFPAY ==
--- NOTE | ~2025-11-03 | US_ITS ---
Examination: Ultrasound biopsy of right neck lymph nodes. CLINICAL INDICATION: Multiple enlarged right supraclavicular neck lymph nodes. COMPARISON: CT neck 09/08/2025. TECHNIQUE: Following explaining ultrasound-guided right supra clavicular neck lymphadenopathy biopsy procedure, benefits and risk, a written consent was obtained. Preliminary ultrasound imaging was obtained through the right neck and optimal site was selected and marked along the anterior neck. The marked site was cleaned and draped in usual sterile manner with 2% chlorhexidine solution. 1% lidocaine was injected at puncture site. Under sterile ultrasound guidance 25-gauge needle attached to the syringes advanced and a aspiration biopsy was obtained x3. Repeat imaging was obtained post biopsy revealed no hemorrhage. Sterile dressing applied at the puncture site. Patient tolerated procedure extremely well. No conscious sedation was utilized. US/US biopsy lymph node IMPRESSION: Successful ultrasound-guided fine-needle aspiration biopsy right supra clavicular neck lymph node. Electronically signed by: Vega Hull MD 11/03/2025 01:09 PM MAGGIE
[2025-11-03] MEDS: Lidocaine HCl 1 % MPF 5 ML VIAL SUBCUT (10:35)
--- OUTSIDE RECORDS SUMMARY | 2025-11-03 10:59 | XMS_ITS | Encounter Summary ---
Author Organization [facility] Address [address] [place] [phone] Phone Care Team Providers Care Senior Javascript Engineer Name Role Phone Arturo Cheung MD Primary Care Provider Unavailabl e Encounter Details Date Type Department Care Team (Late st Contact Info) Description 06/03/2011 Documentation [facility] [address] [place], [place] [id number] Family Medicine, Physician [address] [place] [address] Social History Tobacco Use Types Packs/Day Years [...] filedocumented in this encounter Care Teams Senior Javascript Engineer Relationship Specialty Start Date End Date Arturo Cheung MD PCP - General 06/27/17 documented as of this encounter
--- OUTSIDE RECORDS SUMMARY | 2025-11-03 10:59 | XMS_ITS | Encounter Summary ---
Author Organization [facility] Address [address] [place] [address] Phone Care Team Providers Care Air Pumper Name Role Phone Arturo Cheung MD Primary Care Provider Unavailabl e Encounter Details Date Type Department Care Team (Late st Contact Info) Description 06/03/2011 Documentation [facility] [address] [place], [place] [phone] Family Medicine, Physician [address] [place] [address] Social History Tobacco Use Types Packs/Day Years [...] on filedocumented in this encounter Care Teams Air Pumper Relationship Specialty Start Date End Date Arturo Cheung MD PCP - General 06/27/17 documented as of this encounter
--- OUTSIDE RECORDS SUMMARY | 2025-11-03 10:59 | XMS_ITS | Encounter Summary ---
Author Organization [facility] Address [address] [place] [address] Phone Care Team Providers Care Fence Setter Name Role Phone rAturo Cheung MD Primary Care Provider Unavailabl e Encounter Details Date Type Department Care Team (Late st Contact Info) Description 06/03/2011 Documentation [facility] [address] [place], [place] [phone] Family Medicine, Physician [address] [place] [address] Social History Tobacco Use Types Packs/Day Years [...] on filedocumented in this encounter Care Teams Fence Setter Relationship Specialty Start Date End Date Arturo Cheung MD PCP - General 06/27/17 documented as of this encounter
--- OUTSIDE RECORDS SUMMARY | 2025-11-03 11:01 | XMS_ITS | Encounter Summary ---
Author Organization [facility] Address [address] [place] [address] Phone Care Team Providers Care Flask Carrier Name Role Phone Arturo Cheung MD Primary Care Provider Unavailabl e Encounter Details Date Type Department Care Team (Late st Contact Info) Description 07/03/2017 Conversion Encounter [facility] - [address] [address] Social History Tobacco Use Types Packs/Day Years [...] on filedocumented in this encounter Care Teams Flask Carrier Relationship Specialty Start Date End Date Arturo Cheung MD PCP - General 06/27/17 documented as of this encounter
--- OUTSIDE RECORDS SUMMARY | 2025-11-03 11:01 | XMS_ITS | Clinical Summary ---
Author Organization [facility] Address [address] [place] [phone] Phone Care Team Providers Care Guitar Player Name Role Phone Arturo Cheung MD Primary [...] age to complete this topic Care Teams Guitar Player Relationship Specialty Start Date End Date Arturo Cheung MD PCP - General 06/27/17
--- OUTSIDE RECORDS SUMMARY | 2025-11-03 11:01 | XMS_ITS | Encounter Summary ---
Author Organization [facility] Address [address] [place] [address] Phone Care Team Providers Care It Security Consulting Director Name Role Phone Arturo Cheung MD Primary Care Provider Unavailabl e Encounter Details Date Type Department Care Team (Late st Contact Info) Description 03/11/2012 Documentation [facility] [address] [place], [place] [phone] Family Medicine, Physician [address] [place] [address] Social History Tobacco Use Types Packs/Day Years [...] on filedocumented in this encounter Care Teams It Security Consulting Director Relationship Specialty Start Date End Date Arturo Cheung MD PCP - General 06/27/17 documented as of this encounter
--- OUTSIDE RECORDS SUMMARY | 2025-11-03 11:01 | XMS_ITS | Encounter Summary ---
Author Organization [facility] Address [address] [place] [address] Phone Care Team Providers Care Deputy Sheriff Civil [employer] Name Role Phone Arturo Cheung MD Primary Care Provider Unavailabl e Encounter Details Date Type Department Care Team (Late st Contact Info) Description 05/08/2012 Documentation [facility] [address] [place], [place] [phone] Family Medicine, Physician [address] [place] [address] Social History Tobacco Use Types Packs/Day Years [...] on filedocumented in this encounter Care Teams Deputy Sheriff Civil [employer] Relationship Specialty Start Date End Date Arturo Cheung MD PCP - General 06/27/17 documented as of this encounter
== END 2025-11-03 09:34 | disposition home or self-care (01) ==
LOC: HO.US 09:33
PROVIDERS: PCP Physician Assistant; Visit Provider Surgery
DX: R59.0 Localized enlarged lymph nodes (principal)
CPT/HCPCS: 38505; 76942; 88173; 88305; J2003

== ENCOUNTER → 2025-11-03 09:34 | Outpatient (BNV) | payer OTHER, SELFPAY | PROVIDERS: PCP Physician Assistant; Visit Provider Radiology Diagnostic Radiology | DX: R59.0 Localized enlarged lymph nodes (principal) | CPT/HCPCS: 38505; 76942 ==

== ENCOUNTER 2025-11-04 11:18 | Outpatient (AMB) | payer OTHER, SELFPAY ==
--- NOTE | 2025-11-04 11:53 | MHC.OFFVIS ---
Intake Visit Reasons: erectile dysfunction/Polyuria/UA(set) Intake Note: Reason for Visit: New Patient Erectile Dysfunction/Polyuria Urology Meds: Sildenafil Blood Thinners: None Antibiotic Allergy: None Labs: None Imaging: None Last PVR: None Family History: Prostate Cancer? No Bladder Cancer? No Kidney Cancer? No Security And Compliance Analyst Required: No Accompanied by: Self / Same As Patient Allergies No Known Allergies Allergy (Verified 11/04/25 11:56) HPI Comments Details: Mumtaz is a pleasant male. He is a patient of Dr. Dangelo. He is seen for the following urologic conditions - erectile dysfunction - microscopic hematuria Reports waking at night Does drink too much fluid before bed Has erectile issues Compounded by sleep deprivation [facility] Medical History Cervical lymphadenopathy Asthma (03/27/21) Surgical History History of adenoidectomy Family History Father Congenital heart defect Mother No problems noted. Social History Household Members: None Housing: Apartment Alcohol intake: current Alcohol intake frequency: a few times a month Alcohol type: hard liquor Patient Tobacco Use Status: Never used Tobacco Tobacco use type: Smokeless Tobacco e-Cigarette/Vaping Use: Currently Using Second Hand Smoke Exposure: No service: No Current occupational status: employed Current occupation: motor bus driver Cognitive needs: No Hearing needs: No Vision needs: No Review of Systems Const Denies chills and Denies fever(s) Card Reports no additional complaints and Denies syncope Resp Denies cough GI Denies abdominal pain and Denies heartburn Reports as per HPI and Denies change in libido Neuro Denies syncope Psych Denies change in libido Endo Denies change in libido Physical Exam Const General: cooperative, healthy appearing, comfortable and no acute distress Orientation/consciousness: patient oriented x3 HEENT Face and sinus: Yes normal facial exam Mouth: moist mucous membranes Neck Neck: Yes normal visual inspection, Yes full ROM and Yes trachea midline Chest Chest palpation & inspection: normal inspection of the chest Resp Effort & Inspection: normal respiratory effort, able to speak in complete sentences and no respiratory distress GI Inspection: Yes normal to inspection Back/Spine/Pelvis Cervical Spine: normal cervical lordosis Thoracic/Lumbar Spine: thoracic and lumbar spine normal to inspection Skin General skin exam: no rashes or lesions noted Neuro General: patient oriented x3, gait normal, tone normal and moves all extremities Extrem General: Yes normal to inspection and Yes capillary refill normal Assessment & Plan Assessment & Plan (1) Polyuria: Code(s): R35.89 - Other polyuria Category: Medical (2) Erectile disorder: Code(s): N52.9 - Male erectile dysfunction, unspecified Category: Medical Plan Six-month follow-up Orders: Orders AMB Urinalysis Automated 11/04/25 Z13.9 - Encounter for screening, unspecified Patient Instructions: This note is constructed using voice recognition software. While every effort has been made to ensure accuracy business architect errors may have been included. Imaging studies, laboratory and physical exam results were discussed and reviewed in detail. No major barriers to patient understanding were identified. An opportunity to ask questions regarding the treatment plan was provided. All questions were answered. The patient expressed understanding and agreement with the above treatment plan. The patient is aware they should contact our office by phone for worsening of their current condition or the appearance of new urologic symptoms. Compliance is encouraged with any medications and followup testing that is ordered. It is a privilege to participate in the urologic care of your patient. If you have any questions or concerns regarding treatment for the above conditions, or other urologic issues, please do not hesitate to contact me. The office telephone contact is [phone]. Sincerely, Dr Raul Zabala MD, [facility] - Urology Compassionate Specialist Care for the Genitourinary System Coding Level of Care Code New Pt Level 3 (31451) Diagnoses Polyuria R35.89 Erectile disorder N52.9
--- OUTSIDE RECORDS SUMMARY | 2025-11-04 13:22 | XMS_ITS | Clinical Summary ---
Author Organization [facility] Address [address] [place] [phone] Phone Care Team Providers Care Dial Marker Name Role Phone Arturo Cheung MD Primary [...] age to complete this topic Care Teams Dial Marker Relationship Specialty Start Date End Date Arturo Cheung MD PCP - General 06/27/17
--- OUTSIDE RECORDS SUMMARY | 2025-11-04 13:22 | XMS_ITS | Encounter Summary ---
Author Organization [facility] Address [address] [place] [address] Phone Care Team Providers Care Service Writer Advisor Name Role Phone Arturo Cheung MD Primary Care Provider Unavailabl e Encounter Details Date Type Department Care Team (Late st Contact Info) Description 07/03/2017 Conversion Encounter [facility] - [address] [phone] Social History Tobacco Use Types Packs/Day Years [...] on filedocumented in this encounter Care Teams Service Writer Advisor Relationship Specialty Start Date End Date Arturo Cheung MD PCP - General 06/27/17 documented as of this encounter
--- OUTSIDE RECORDS SUMMARY | 2025-11-04 13:22 | XMS_ITS | Encounter Summary ---
Author Organization [facility] Address [address] [place] [phone] Phone Care Team Providers Care Slot Attendant Name Role Phone Arturo Cheung MD Primary Care Provider Unavailabl e Encounter Details Date Type Department Care Team (Late st Contact Info) Description 06/03/2011 Documentation [facility] [address] [place], [place] [phone] Family Medicine, Physician [address] [place] [address] Social History Tobacco Use Types Packs/Day Years [...] on filedocumented in this encounter Care Teams Slot Attendant Relationship Specialty Start Date End Date Arturo Cheung MD PCP - General 06/27/17 documented as of this encounter
--- OUTSIDE RECORDS SUMMARY | 2025-11-04 13:22 | XMS_ITS | Encounter Summary ---
Author Organization [facility] Address [address] [place] [phone] Phone Care Team Providers Care Carbonating Stone Cleaner Name Role Phone Arturo Cheung MD Primary Care Provider Unavailabl e Encounter Details Date Type Department Care Team (Late st Contact Info) Description 2011 Documentation [facility] [address] [place], [place] [id number] Family Medicine, Physician [address] [place] [address] Social History Tobacco Use Types Packs/Day Years [...] on filedocumented in this encounter Care Teams Carbonating Stone Cleaner Relationship Specialty Start Date End Date Arturo Cheung MD PCP - General 06/27/17 documented as of this encounter
--- OUTSIDE RECORDS SUMMARY | 2025-11-04 13:22 | XMS_ITS | Encounter Summary ---
Author Organization [facility] Address [address] [place] [phone] Phone Care Team Providers Care Clinical Nursing Instructor Name Role Phone Arturo Cheung MD Primary Care Provider Unavailabl e Encounter Details Date Type Department Care Team (Late st Contact Info) Description 06/03/2011 Documentation [facility] [address] [place], [place] [id number] Family Medicine, Physician [address] [place] [address] Social History Tobacco Use Types Packs/Day Years [...] on filedocumented in this encounter Care Teams Clinical Nursing Instructor Relationship Specialty Start Date End Date Arturo Cheung MD PCP - General 06/27/17 documented as of this encounter
--- OUTSIDE RECORDS SUMMARY | 2025-11-04 13:22 | XMS_ITS | Data Portability ---
Author Organization [facility] Address [address] [place] [address] Assessment No assessment recorded. Plan of Treatment [...] ICD10 Code Diagnosis IMO Codes Diagnosis Note [id number] [facility] [address] [place] [address] 09/12/2022 12:44:28 09/12/2022 13:36:38 [id number] [facility] CAMPBELL 2[facility] [address] [place] [address] 12/24/2022 14:19:37 12/24/2022 16:30:04 History and physical examination, pre-employment [id number] Z02.1 Health Concerns Section Related Observation LastModified by Organization Detai ls LastModified Time None Recorded Concern Status LastModified by Organization Details LastModified Time None Recorded Advance Directives Directive None Recorded Payers Insurance Date Sequence Insurance Name Policy Number Policy Carrillo Covered Member ID Carrillo Member ID Guarantor Name 12/24/2022 -[facility] Artemio Redmond
--- OUTSIDE RECORDS SUMMARY | 2025-11-04 13:22 | XMS_ITS | Encounter Summary ---
Author Organization [facility] Address [address] [place] [phone] Phone Care Team Providers Care Track Fitter Name Role Phone Arturo Cheung MD Primary Care Provider Unavailabl e Encounter Details Date Type Department Care Team (Late st Contact Info) Description 05/08/2012 Documentation [facility] [address] [place], [place] [phone] Family Medicine, Physician [address] [place] [address] Social History Tobacco Use Types Packs/Day Years [...] on filedocumented in this encounter Care Teams Track Fitter Relationship Specialty Start Date End Date Arturo Cheung MD PCP - General 06/27/17 documented as of this encounter
--- OUTSIDE RECORDS SUMMARY | 2025-11-04 13:22 | XMS_ITS | Encounter Summary ---
Author Organization [facility] Address [address] [place] [phone] Phone Care Team Providers Care Road Mixer Operator Name Role Phone Arturo Cheung MD Primary Care Provider Unavailabl e Encounter Details Date Type Department Care Team (Late st Contact Info) Description 03/11/2012 Documentation [facility] [address] [place], [place] [phone] Family Medicine, Physician [address] [place] [address] Social History Tobacco Use Types Packs/Day Years [...] on filedocumented in this encounter Care Teams Road Mixer Operator Relationship Specialty Start Date End Date Arturo Cheung MD PCP - General 06/27/17 documented as of this encounter
--- OUTSIDE RECORDS SUMMARY | 2025-11-04 13:22 | XMS_ITS | Encounter Summary ---
Author Organization [facility] Address [address] [place] [phone] Phone Care Team Providers Care P 3 Armament/Ordnance Ima Technician Name Role Phone Arturo Cheung MD Primary Care Provider Unavailabl e Encounter Details Date Type Department Care Team (Late st Contact Info) Description 06/03/2011 Documentation [facility] [address] [place], [place] [phone] Family Medicine, Physician [address] [place] [address] Social History Tobacco Use Types Packs/Day Years [...] on filedocumented in this encounter Care Teams P 3 Armament/Ordnance Ima Technician Relationship Specialty Start Date End Date Arturo Cheung MD PCP - General 06/27/17 documented as of this encounter
== END 2025-11-04 12:34 | disposition home or self-care (01) ==
LOC: HO.HUSH 11:19
PROVIDERS: PCP Physician Assistant; Visit Provider Urology
DX: R35.89 Other polyuria (principal); N52.9 Male erectile dysfunction, unspecified
CPT/HCPCS: 99203